=== PATIENT | male | born 1970 | race Two or more races ===

== ENCOUNTER 2024-12-22 07:04 | Inpatient (IN) | payer MEDICAID, SELFPAY ==
[2024-12-22] VITALS (11 sets, daily range): BP systolic 118–173; BP diastolic 77–98; PULSE 78–101; RESP 14–28; TEMP 36.6–37.3; O2SAT 87–100; BMI 28.7
--- NOTE | 2024-12-22 07:30 | EKG_ITS ---
[facility] Test Date: 2024-12-22 Pat Name: JD RIVAS Department: Room: - Gender: Male Dietary Server: VIRI : 1970 Requested By: Ahsan Encinas Order Number: [id number] Reading MD: Ahsan Encinas Measurements Intervals [place] Rate: 93 P: -11 CT: 181 QRS: -16 QRSD: 110 T: 82 QT: 380 QTc: 474 Interpretive Statements SINUS RHYTHM NONSPECIFIC T-WAVE ABNORMALITY Compared to ECG 12/22/2024 07:30:59 T-wave abnormality now present Left ventricular hypertrophy no longer present ST (T wave) deviation no longer present /store/S0/[id number].pdf
--- NOTE | 2024-12-22 07:30 | XR_ITS ---
Examination: AP chest single view Technique one AP portable upright chest single view Date and time: December 22, 2024 0752 hours INDICATIONS: Chest pain today. FINDINGS: Early CHF. Mild enlargement cardiac contour, prominent vascular congestion with perihilar basilar edema Cardiac leads satisfactory position IMPRESSION: Early CHF
--- NOTE | 2024-12-22 07:31 | EKG_ITS ---
[facility] Test Date: 2024-12-22 Pat Name: JD RIVAS Department: Room: - Gender: Male Strategic Communications Manager: : 1970 Requested By: ED Temporary Provider Order Number: [id number] Reading MD: ED Temporary Provider Measurements Intervals [place] Rate: 88 P: -11 [place]: 187 QRS: -21 QRSD: 122 T: 80 QT: 430 QTc: 521 Interpretive Statements SINUS RHYTHM POSSIBLE LEFT ATRIAL ENLARGEMENT [-0.1mV P-WAVE IN V1/V2] BORDERLINE LEFT AXIS DEVIATION [QRS AXIS < -20] LEFT VENTRICULAR HYPERTROPHY AND ST-T CHANGE [VOLTAGE CRITERIA PLUS ST/T ABNORMALITY] No previous ECG available for comparison /store/S0/[id number].pdf
[2024-12-22] MEDS: MORPHINE SULF INJ 4 MG/ML VIAL 2 MG IVP ×2 (08:02→18:27)
[2024-12-22] MEDS: ONDANSETRON INJ 2 MG/ML INJ 2 ML 4 MG IVP (08:03)
[2024-12-22 08:04] LABS: INR 1.0 (0.9-1.3); Partial Thromboplastin Time 29.7 Seconds (22.0-36.0); Prothrombin Time 11.4 Seconds (9.0-12.2)
[2024-12-22 08:06] LABS: B-Type Natriuretic Peptide 360 pg/mL (0-100); Basophils # (Auto) 0.1 Thou/mm3 (0.0-0.2); Basophils % (Auto) 1 % (0-2.5); Eosinophils # (Auto) 0.1 Thou/mm3 (0.0-0.5); Eosinophils % (Auto) 2 % (0-10); Hematocrit 41.5 % (41.0-53.0); Hemoglobin 13.2 g/dL (13.5-16.0); Immature Granulocytes Auto 0.07 Thou/mm3 (0.00-0.00); Lymphocytes # (Auto) 0.9 Thou/mm3 (1.0-4.8); Lymphocytes % (Auto) 11 % (10-50); Mean Corpuscular HGB Conc 31.8 g/dl (31.0-37.0); Mean Corpuscular Hemoglobin 28.0 pg (25.0-35.0); Mean Corpuscular Volume 88 fL (80-100); Monocytes # (Auto) 0.6 Thou/mm3 (0.0-0.8); Monocytes % (Auto) 8 % (0-12); Neutrophils # (Auto) 6.5 Thou/mm3 (1.8-7.7); Neutrophils % (Auto) 78 % (37-80); Nucleated Red Blood Cell # 0.00 Thou/mm3 (0.00-0.00); Nucleated Red Blood Cell % 0 /100 WBC (0); Platelet Count 254 Thou/mm3 (140-440); RDW Standard Deviation 47.6 fL (35.1-43.9); Red Blood Count 4.72 Miln/mm3 (4.50-5.90); White Blood Count 8.3 Thou/mm3 (3.8-10.6)
[2024-12-22 08:15] LABS: Alanine Aminotransferase 18 U/L (10-49); Albumin, Serum 3.8 gm/dL (3.5-5.0); Anion Gap 10 (7-16); Aspartate Amino Transferase 21 U/L (0-34); BUN/Creatinine Ratio 8 Ratio (12-20); Bilirubin,Total 0.8 mg/dL (0.3-1.2); Blood Urea Nitrogen 9 mg/dL (9-23); Calcium 9.0 mg/dL (8.3-10.6); Calcium (Corrected) 9.2 mg/dL (8.5-10.1); Carbon Dioxide 28.0 mMol/L (20.0-31.0); Chloride 104 mMol/L (98-107); Creatinine (Component) 1.2 mg/dL (0.6-1.3); Estimated Creatinine Clearance 80.6 mL/min (>60); Globulin 2.3 gm/dL (2.3-3.5); Glucose 92 mg/dL (74-106); Magnesium 1.8 mg/dL (1.6-2.6); Osmolality,Calculated 281 (275-295); Potassium 3.0 mMol/L (3.4-5.1); Sodium 142 mMol/L (136-145); Total Protein 6.1 gm/dL (5.7-8.2); eGFR > 60 See Note
[2024-12-22 08:16] LABS: Albumin/Globulin Ratio 1.7 (1.2-2.2); Alkaline Phosphatase 108 U/L (46-116)
[2024-12-22 08:29] LABS: Troponin I 0.523 ng/mL (0.0-0.045)
--- NOTE | 2024-12-22 08:29 | PC.NURSE ---
CALL FROM [facility] IN LAB RE: TROP 0.523. INFORMED.
[2024-12-22] MEDS: HEPARIN SOD INJ 5000 UNIT/ML VIAL 4000 UNIT IV (10:27)
--- NOTE | 2024-12-22 10:27 | EDNOTE_ITS ---
ED Chest Pain RME/HPI General Chief Complaint: Chest Pain Stated Complaint: CHEST PAIN Arrival date/time: 12/22/24 07:04 Limitations: no limitations RME / HPI RME / HPI narrative: 53 year old male with history of pacemaker placement 2 years ago at [facility], hypertension?, diabetes? presents to the ED BIBA from home for evaluation of chest pain beginning 2 days ago. Pain described as aching in nature, localized to the left side of chest, without radiation, rating 7/10. Accompanied by feeling short of breath today. No reported modifying or aggravating factors. Patient states he called EMS yesterday for similar chest pain and had an EKG performed at that time. States they advised further evaluation and patient states he would drive himself to the hospital which he did not do. Admits to using meth and last used 2 weeks ago. Related Data Previous Rx's ?Medication ?Instructions ?Recorded Hydrocodone/Acetaminophen * (NORCO 1 tab PO BID PRN PA IN #10 tabs 11/04/15 5/325 *) Allergies Allergy/AdvReac Type Severity Reaction Status Date / Time No Known Allergies Allergy Verified 12/22/24 07:25 Review of Systems Review of Systems Systems Reviewed: All systems reviewed, normal except as documented Past Medical History Social History SMOKING STATUS: Current every day smoker ED Exam General Limitations: Present no limitations General appearance: Present alert and other (appears depressed ) Head Head exam: Present atraumatic, normocephalic and normal inspection Eye Eye exam: Present normal appearance, PERRL and EOMI ENT ENT exam: Present normal exam, normal oropharynx and mucous membranes moist Neck Neck exam: Present normal inspection, full ROM and trachea midline Chest Chest inspection: Present symmetric chest wall rise and other (pacemaker left upper chest ) Respiratory Respiratory exam: Present normal lung sounds bilaterally Cardiovascular Cardiovascular exam: Present regular rate, normal rhythm and normal heart sounds Abdominal Exam Abdominal exam: Present soft and normal bowel sounds Extremities Exam Extremities exam: Present normal inspection and full ROM Back Exam Back exam: Present normal inspection and full ROM Neurological Exam Neurological exam: Present alert, oriented X3 and CN II-XII intact Psychiatric Psychiatric exam: Present other (appears depressed ) Skin Skin exam: Present warm, dry, intact and normal color Course Quality Measures none Orders Category Date Time Status Patient Condition Routine Admission 12/22/24 10:02 Ordered Activity as Tolerated Routine Care 12/22/24 10:02 Ordered COVID-19 Screening Questionnaire NOW Care 12/22/24 09:41 Active Template Inspector STAT Care 12/22/24 07:30 Active Continuous Pulse Oximetry ONCE Care 12/22/24 07:30 Active Decision to Admit X1 Care 12/22/24 09:41 Completed EKG (ED ONLY) *Do not use* NOW Care 12/22/24 07:30 Completed EKG (ED ONLY) *Do not use* NOW Care 12/22/24 07:31 Completed Flu & Pneumonia Vaccine Screen ONCE Care 12/22/24 10:02 Active Insert IV STAT Care 12/22/24 07:30 Active Notify provider NOW Care 12/22/24 09:39 Active Obtain weight daily Care 12/22/24 10:02 Active Consult to Cardiology Stat Cons 12/22/24 09:41 Ordered Diet Cardiac Diet 12/22/24 Lunch Active CA echo doppler complete Routine Exams 12/22/24 10:04 Stop Req EKG (ED Only) Stat Exams 12/22/24 07:30 Ordered EKG (ED Only) Stat Exams 12/22/24 07:31 Draft XR chest 1V portable Stat Exams 12/22/24 07:30 Completed B-Type Natriuretic Peptide Stat Lab 12/22/24 07:39 Completed CBC AM DRAW Lab 12/23/24 05:00 Ordered CBC AM DRAW Lab 12/24/24 05:00 Ordered CBC AM DRAW Lab 12/25/24 05:00 Ordered CBC Stat Lab 12/22/24 07:39 Completed Comprehensive Metabolic Panel AM DRAW Lab 12/23/24 05:00 Ordered Comprehensive Metabolic Panel AM DRAW Lab 12/24/24 05:00 Ordered Comprehensive Metabolic Panel AM DRAW Lab 12/25/24 05:00 Ordered Comprehensive Metabolic Panel Stat Lab 12/22/24 07:39 Completed Magnesium AM DRAW Lab 12/23/24 05:00 Ordered Magnesium Stat Lab 12/22/24 07:39 Completed PT [Prothrombin Time with INR] Stat Lab 12/22/24 07:39 Completed PTT [Partial Thromboplastin Time] Stat Lab 12/22/24 07:39 Completed Partial Thromboplastin Time AM DRAW Lab 12/24/24 05:00 Ordered Phosphorous AM DRAW Lab 12/23/24 05:00 Ordered Prothrombin Time with INR AM DRAW Lab 12/24/24 05:00 Ordered Troponin I Q6H Lab 12/22/24 16:15 Ordered Troponin I Q6H Lab 12/22/24 22:15 Ordered Troponin I Stat Lab 12/22/24 07:39 Completed Troponin I Stat Lab 12/22/24 09:44 Completed UA, C/S IF [Urinalysis, C/S if Indicated] Stat Lab 12/22/24 11:30 Completed Acetaminophen Tab [Tylenol Tab] Med 12/22/24 10:02 Active 650 mg PO Q6H PRN Aspirin Med 12/22/24 07:34 Discontinued 325 mg PO X1 ONE Heparin Inj Med 12/22/24 09:39 Discontinued 4,000 unit IV X1 ONE Heparin/D5w 25K 250 ML Ivpb [Heparin in D5w Ivpb] Med 12/22/24 09:45 Discontinued 25,000 unit in 250 ml IV 12 units/kg/hr Morphine* Inj Med 12/22/24 07:34 Discontinued 2 mg IVP X1 ONE Ondansetron Inj [Zofran Inj] Med 12/22/24 07:34 Discontinued 4 mg IVP X1 ONE Senna [Senokot] Med 12/22/24 10:02 Active 1 tab PO BID PRN Code Status Routine Oth 12/22/24 10:02 Ordered Vital Signs Vital signs: Vital Signs Temperature 99.0 F 12/22/24 07:15 Pulse Rate 91 12/22/24 07:15 Respiratory Rate 18 12/22/24 07:15 Blood Pressure 173/77 H 12/22/24 07:15 Pulse Oximetry (%) 98 12/22/24 07:15 Oxygen Delivery Method Nasal Cannula 12/22/24 07:15 Oxygen Flow Rate 2 12/22/24 07:15 Pulse ox is 98% on 2L which is adequate. Chest Pain MDM Narrative MDM Narrative:: Saira Kumar am scribing for and in the presence of Dr. Mejia. Patient data External records reviewed:: EMS form Clinical information provided by:: patient and EMS Social determinants that could affect healthcare access:: substance use (meth, last used 2 week ago ) Patient has the following chronic illnesses:: pacemaker placement 2 years ago at [facility], hypertension?, diabetes? How is presenting disease/condition affected by chronic disease/condition?: exacerbated by Evaluation data The following diagnostics were reviewed and interpreted by me:: lab results, radiology exam(s) and EKG tracing(s) (12/22/2024 @ 07:30 AM. NSR, rate 88, left atrial enlargement, left axis deviation, nonspecific ST-T wave changes. ) Lab and/or radiology exams considered but not ordered:: None Interpretation Summary: Ordering Physician: Ahsan Mejia MD Date of Service: 12/22/24 Procedure(s): XR chest 1V portable Accession Number(s): [id number] cc: Ahsan Mejia MD; Ravi Peña MD; NO PRIMARY/FAMILY,PHYSICIAN~ Examination: AP chest single view Technique one AP portable upright chest single view Date and time: December 22, 2024 0752 hours INDICATIONS: Chest pain today. FINDINGS: Early CHF. Mild enlargement cardiac contour, prominent vascular congestion with perihilar basilar edema Cardiac leads satisfactory position IMPRESSION: Early CHF Dictated By: Ravi Peña MD Signed By: <Electronically signed by Ravi Peña MD in OV> 12/22/24 1008 Medications / Prescriptions Medications or Prescriptions considered but not ordered:: None Medication administrations:: Medication Administration History Acetaminophen (Acetaminophen 325 Mg Tablet) 650 mg PO Q6H PRN PRN Reason: PAIN SCALE 1-3 (mild Stop: 01/21/25 10:01 Atorvastatin Calcium (Atorvastatin Calcium 20 Mg Tablet) 80 mg PO HS DEBRA Stop: 01/21/25 20:59 Furosemide (Furosemide Inj 10 Mg/Ml 4ml Vial) 40 mg IVP QDAY DEBRA Stop: 01/22/25 08:59 Magnesium Sulfate (Magnesium Sulfate Ivpb) 4 gm in 50 mls @ 12.5 mls/hr IV X1 ONE Stop: 12/22/24 14:20 Last Admin: 12/22/24 11:12 Dose: 12.5 mls/hr Documented By: CHE Sennosides (Senna Tablet) 1 tab PO BID PRN; Protocol PRN Reason: CONSTIPATION Stop: 01/21/25 10:01 Valsartan (Valsartan 40 Mg Tablet) 80 mg PO QDAY DEBRA Stop: 01/21/25 10:29 Last Admin: 12/22/24 11:10 Dose: 80 mg Documented By: LP Discontinued Medications Albuterol (Albuterol Rt 2.5 Mg/3 Ml Nebu) 2.5 mg INH X1 ONE Stop: 12/22/24 13:27 Aspirin (Aspirin 325 Mg Tablet) 325 mg PO X1 ONE Stop: 12/22/24 07:35 Last Admin: 12/22/24 08:02 Dose: 325 mg Documented By: CHE Heparin Sodium (Porcine) (Heparin Sod Inj 5000 Unit/Ml Vial) 4,000 unit IV X1 ONE; Protocol Stop: 12/22/24 09:40 Last Admin: 12/22/24 10:27 Dose: 4,000 unit Documented By: CHE Co-signed By: SYD Heparin Sodium/Dextrose (Heparin In D5w Ivpb) 25,000 unit in 250 mls @ 10.886 mls/hr IV .[id number] DEBRA; Protocol Stop: 01/05/25 09:44 Last Admin: 12/22/24 10:28 Dose: 12 units/kg/hr, 10.886 mls/hr Documented By: CHE Co-signed By: SYD Morphine Sulfate (Morphine Sulf Inj 4 Mg/Ml Vial) 2 mg IVP X1 ONE Stop: 12/22/24 07:35 Last Admin: 12/22/24 08:02 Dose: 2 mg Documented By: CHE Ondansetron HCl (Ondansetron Inj 2 Mg/Ml Inj 2 Ml) 4 mg IVP X1 ONE; Protocol Stop: 12/22/24 07:35 Last Admin: 12/22/24 08:03 Dose: 4 mg Documented By: CHE Potassium Chloride (Potassium Chloride 10% 20 Meq/15 Ml Udc) 40 meq PO X1 ONE Stop: 12/22/24 10:23 Last Admin: 12/22/24 11:10 Dose: 40 meq Documented By: CHE Potassium Chloride (Potassium Chloride 20 Meq Tabcr) 40 meq PO X1 ONE Stop: 12/22/24 13:01 Last Admin: 12/22/24 13:09 Dose: 40 meq Documented By: GARRY Valsartan (Valsartan 80 Mg Tablet) 80 mg PO QDAY [facility] Stop: 01/21/25 10:29 Last Admin: 12/22/24 13:04 Dose: Not Given Documented By: GARRY Non-Admin Reason: Cancelled by Provider See above Consultations Consultation(s) initiated? (list below): Yes Consultation #1 (Physician, Specialty, Details): I spoke with orchestra conductor Dr. Goldstein. Discussed patients PMHx, HPI, ED course, exam findings, labs, and radiology results. Time: 09:36 Consultation #2 (Physician, Specialty, Details): I spoke with hospitalist team B regarding admission. Diagnosis Chest Pain Differential Diagnosis: stable angina, unstable angina pectoris, atypical chest pain, st elevation myocardial infarction, costochondritis and chest pain Most likely diagnosis given after review of the tests above:: Chest pain Elevated troponin Methamphetamine abuse Admission Indicated Admission indicated?: indicated Admission Request Was there a request for admission?: Yes Admission Attestation Admission request attestation: Discussed case with [] from Hospitalist service regarding admission. Discussed patients ED course, exam findings, labs, and radiology results. The Hospitalist [agrees,declines] to accept the patient for admission. Disposition Plan Disposition Plan: Admit Discharge Plan Plan Patient Disposition: Admit Acute Care w/in Hospital Problem List Clinical Impression: Chest pain, Elevated troponin, Methamphetamine use
[2024-12-22] MEDS: Heparin/D5w 25K 250 ML Ivpb 25,000 UNIT/250 ML BAG 10.886 UNIT IV (10:28)
[2024-12-22 10:32] LABS: Troponin I 0.523 ng/mL (0.0-0.045)
--- NOTE | 2024-12-22 11:08 | PC.NURSE ---
SPOKE W/ GAGAN IN PHARMACY THAT THERE IS NO MAGNESIUM IV IN THE [facility]. HE WILL BRING MORE TO [facility].
[2024-12-22] MEDS: POTASSIUM CHLORIDE 10% 20 MEQ/15 ML UDC 40 MEQ PO (11:10)
[2024-12-22] MEDS: VALSARTAN 40 MG TABLET 80 MG PO (11:10)
[2024-12-22] MEDS: Magnesium Sulfate 4 GM Ivpb 4 GM/50 ML BAG IV (11:12)
[2024-12-22 11:43] LABS: Collection Type, Urine Clean Catch
[2024-12-22 11:49] LABS: Bilirubin,Urine Negative (Negative); Blood,Urine Negative (Negative); Clarity,Urine Clear (Clear/Hazy); Color,Urine Yellow (Lt Yel-Yel); Culture Indicated,Urine Not Indicated; Glucose, Urine Negative (Negative); Ketones,Urine Negative (Negative); Leukocyte Esterase,Urine Negative (Negative); Nitrite,Urine Negative (Negative); PH,Urine 6.0 (5.0-7.0); Protein,Urine 1+ (Neg - Trace); RBC,Urine 2 /hpf (0-3); Specific Gravity,Urine 1.028 (1.001-1.035); Squamous Epithelial Cell,Urine < 1 /hpf (0-5); Urobilinogen,Urine Negative mg/dL (0.0-1.0); WBC,Urine 1 /hpf (0-5)
--- NOTE | 2024-12-22 13:31 | PC.NURSE ---
REPORT CALLED TO PATRICIO AGUSTIN ON TELE. PT WILL BE TRANSFERRED TO ROOM #[id number].
[2024-12-22] MEDS: ALBUTEROL RT 2.5 MG/3 ML NEBU INH (13:51)
--- NOTE | 2024-12-22 13:56 | ESHP_ITS ---
<Statement entered by Lyndon Pino MD - 12/22/24 15:11> 53-year-old male with past medical history of HFrEF (EF of 25% about 4 months ago), AICD placement, meth use disorder, medically noncompliant stating he has not seen a PCP or area representative in about 1-2 years presenting to the ED with episode of left-sided chest pain which started about 3 days ago. Patient states that he has not taken any of his 15 medications as these medications usually cause him to end up in the hospital. Patient states that the chest pain has progressively worsened throughout these past 3 days and is associated with shortness of breath but no palpitations or trauma to the area. Patient also admitted to using methamphetamine about 2 weeks ago. On examination, patient does not seem volume overloaded with no JVD, crackles on auscultation of the lungs or lower extremity edema. Additionally chest pain is reproducible with palpation of the chest wall. Cardiology was consulted from the ED due to the patient having elevated troponin and EKG changes which increase suspicion for NSTEMI. Patient was initially started on heparin drip; however, upon cardiology reassessing the patient decision was made to discontinue heparin drip and echo as he has had a recent study. Will monitor patient's troponin and chest pain and restart patient on GDMT and antiplatelet medication. Expect discharge within the next 24 hours once the patient is clinically stable. Will highly recommend the patient to follow-up with PCP and restart taking his medications and his health seriously. I have personally seen and examined the patient. I agree with the resident's assessment and plan as documented below. Lyndon Pino DO PGY-2 Internal Medicine - GME Documentation for date of: 12/22/24 HPI History of Present Illness Chief complaint: Chest pain and SOB History of present illness: Mr. Mina is a 53-year-old male with a past medical history of type 2 diabetes mellitus, HTN, and HFrEF s/p ICD placement who presented at [facility] ED on 12/22 for chest pain and shortness of breath. Patient was admitted under observation for ACS rule out. According to the patient, the pain and shortness of breath started about 3 days ago. The patient describes it as a stabbing like needle pain in the center of his chest that does not radiate and gets worse on palpation of the chest. Nothing seems to help with the pain and he rates it as a 7-8 out of 10 on the pain scale. Patient stated that he has had ICD placement in the past for heart failure and used to be on multiple medications, but has not been taking any medications for about a year. Looking at his pharmacy refills, the patient took atorvastatin 80 mg daily, furosemide 40 mg daily, metoprolol succinate 25 mg daily, spironolactone 25 mg (timing unclear), and valsartan 80 mg daily. The person who prescribed these medications is Dr. Breen, an firewall administrator in [place], [place], who is affiliated with [facility]. The patient states that he does not have a PCP and does not follow with any area representative. Patient endorses chills and coughs. Patient denies fevers, headaches, abdominal pain, dysuria, and pyuria. ED course: Patient presented to ED with vitals significant for blood pressure of 173/77. EMS brought patient and on 2 L nasal cannula, saturating 99%, gave patient aspirin 162 mg and nitroglycerin, nitroglycerin provided chest pain relief Initial labs were significant for hemoglobin 13.2, potassium 3.0, BNP 360, troponin 0.523, repeat troponin 0.523. Chest x-ray showed mild enlargement of the cardiac contour with prominent vascular congestion and perihilar basilar edema, suggestive of early CHF. Urine tox ordered, pending. Patient was given morphine 2 mg, aspirin 325 mg, and started on heparin drip. 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 Alcohol Intake:?Patient denies active use, did state that he has been sober for 24 years, does not remember how much he drank in the past Tobacco/Vape Use:?Patient states that he smokes about 1 pack of 10 cigarettes over 3 days for several years Other Drug Use:?Crystal methamphetamine, last use was 1 week ago Review of Systems Review of Systems Systems Reviewed: All systems reviewed, normal except as documented Exam Vital Signs Temp Pulse Resp BP Pulse Ox O2 Del Method O2 Flow Rate 99.0 F 83 16 125/83 96 Nasal Cannula 2 12/22/24 13:23 12/22/24 13:51 12/22/24 13:23 12/22/24 13:23 12/22/24 13:23 12/22/24 13:23 12/22/24 13:23 Narrative Exam Physical Exam: General: Alert, no acute distress. Skin: Warm, dry, intact. Head: Normocephalic, atraumatic. Eye: Normal conjunctiva, PERRL. Cardiovascular: Regular rate and rhythm, no murmur, +S1/S2. Tenderness to palpation of mid sternum. Respiratory: Lungs are clear to auscultation, respirations unlabored, no crackles, no wheezing. Gastrointestinal: Soft, nontender, non-distended. No guarding or rebound tenderness. Extremities: No edema, no cyanosis, no clubbing. 2+ radial pulse bilaterally, 2+ pedal pulse bilaterally. Neuro: No focal deficits observed. Conversant, moving all extremities. No overt cerebellar signs/incoordination. Psychiatric: Cooperative, appropriate affect. Results: Labs 12/23/24 05:43 12/23/24 05:43 Labs: Short CBC 12/22/24 Range/Units 07:39 WBC 8.3 (3.8-10.6) Thou/mm3 Hgb 13.2 L (13.5-16.0) g/dL Hct 41.5 (41.0-53.0) % Plt Count 254 (140-440) Thou/mm3 BMP 12/22/24 07:39 Sodium 142 Potassium 3.0 L Chloride 104 Carbon Dioxide 28.0 BUN 9 Creatinine 1.2 Glucose 92 Calcium 9.0 Cardiac Enzymes 12/22/24 12/22/24 Range/Units 07:39 09:44 Troponin I 0.523 H* 0.523 H* (0.0-0.045) ng/mL Liver Function 12/22/24 Range/Units 07:39 Total Bilirubin 0.8 (0.3-1.2) mg/dL AST 21 (0-34) U/L ALT 18 (10-49) U/L Alkaline Phosphatase 108 (46-116) U/L Albumin 3.8 (3.5-5.0) gm/dL Urine 12/22/24 Range/Units 11:30 Urine Color Yellow (Lt Yel-Yel) Urine Clarity Clear (Clear/Hazy) Urine pH 6.0 (5.0-7.0) Ur Specific [place] 1.028 (1.001-1.035) Urine Protein 1+ A (Neg - Trace) Urine Glucose (UA) Negative (Negative) Quality Measures Quality Measures VTE prophylaxis Medications Home Medications and Allergies Allergies Allergy/AdvReac Type Severity Reaction Status Date / Time No Known Allergies Allergy Verified 12/22/24 07:25 Visit Medications Acetaminophen (Acetaminophen 325 Mg Tablet) 650 mg PO Q6H PRN PRN Reason: PAIN SCALE 1-3 (mild Stop: 01/21/25 10:01 Atorvastatin Calcium (Atorvastatin Calcium 20 Mg Tablet) 80 mg PO HS DEBRA Stop: 01/21/25 20:59 Furosemide (Furosemide Inj 10 Mg/Ml 4ml Vial) 40 mg IVP QDAY DEBRA Stop: 01/22/25 08:59 Magnesium Sulfate (Magnesium Sulfate Ivpb) 4 gm in 50 mls @ 12.5 mls/hr IV X1 ONE Stop: 12/22/24 14:20 Last Admin: 12/22/24 11:12 Dose: 12.5 mls/hr Sennosides (Senna Tablet) 1 tab PO BID PRN; Protocol PRN Reason: CONSTIPATION Stop: 01/21/25 10:01 Valsartan (Valsartan 40 Mg Tablet) 80 mg PO QDAY DEBRA Stop: 01/21/25 10:29 Last Admin: 12/22/24 11:10 Dose: 80 mg Discontinued Medications Albuterol (Albuterol Rt 2.5 Mg/3 Ml Nebu) 2.5 mg INH X1 ONE Stop: 12/22/24 13:27 Last Admin: 12/22/24 13:51 Dose: 2.5 mg Aspirin (Aspirin 325 Mg Tablet) 325 mg PO X1 ONE Stop: 12/22/24 07:35 Last Admin: 12/22/24 08:02 Dose: 325 mg Heparin Sodium (Porcine) (Heparin Sod Inj 5000 Unit/Ml Vial) 4,000 unit IV X1 ONE; Protocol Stop: 12/22/24 09:40 Last Admin: 12/22/24 10:27 Dose: 4,000 unit Heparin Sodium/Dextrose (Heparin In D5w Ivpb) 25,000 unit in 250 mls @ 10.886 mls/hr IV .[id number] DEBRA; Protocol Stop: 01/05/25 09:44 Last Admin: 12/22/24 10:28 Dose: 12 units/kg/hr, 10.886 mls/hr Morphine Sulfate (Morphine Sulf Inj 4 Mg/Ml Vial) 2 mg IVP X1 ONE Stop: 12/22/24 07:35 Last Admin: 12/22/24 08:02 Dose: 2 mg Ondansetron HCl (Ondansetron Inj 2 Mg/Ml Inj 2 Ml) 4 mg IVP X1 ONE; Protocol Stop: 12/22/24 07:35 Last Admin: 12/22/24 08:03 Dose: 4 mg Potassium Chloride (Potassium Chloride 10% 20 Meq/15 Ml Udc) 40 meq PO X1 ONE Stop: 12/22/24 10:23 Last Admin: 12/22/24 11:10 Dose: 40 meq Potassium Chloride (Potassium Chloride 20 Meq Tabcr) 40 meq PO X1 ONE Stop: 12/22/24 13:01 Last Admin: 12/22/24 13:09 Dose: 40 meq Valsartan (Valsartan 80 Mg Tablet) 80 mg PO QDAY DEBRA Stop: 01/21/25 10:29 Last Admin: 12/22/24 13:04 Dose: Not Given Assessment & Plan Plan Mr. Mina is a 53-year-old male with a past medical history of type 2 diabetes mellitus, HTN, and HFrEF s/p ICD placement who presented at [facility] ED on 12/22 for chest pain and shortness of breath. Patient was admitted under for ACS workup. #NSTEMI, type I vs II #Chest pain, atypical #ACS workup Patient complaints of chest pain that started about 3 days ago and is described as needlelike stabbing pain on admission that is in the center of his chest and does not radiate. The pain is reproducible and worsened on palpation of the patient sternal area. Per EMS, the patient's chest pain did improve with administration of nitroglycerin. Initial EKG obtained in ED showed no ST elevation. Patient did have elevated troponin of 0.523 in ED at 0739, which was unchanged at 0944. ASCVD score pending - Resumed atorvastatin 80 mg nightly - Resumed metoprolol succinate 25 mg daily - Trending troponins, pending - Lipid panel ordered, pending - Cardiology consulted, appreciate recommendations #HFrEF, EF 25%, s/p ICD While patient does not endorse a history of heart failure correctly, he does mention having a pacemaker. Patient was prescribed GDMT consisting of furosemide, metoprolol, spironolactone, and valsartan. On admission, the patient's BNP was 360 and chest x-ray on 12/22 suggest early CHF. Echocardiogram done in outside facility in September or October showed EF of 25%. - Resumed valsartan 80 mg daily - Resumed furosemide 40 mg daily - Keep potassium >4 and magnessium >2 - Cardiology consulted, appreciate recommendations #Non-insulin dependent type 2 diabetes Patient endorses a history of diabetes. Patient does not have a physician who manages his diabetes. Patient is not on any insulin at home. - Sliding scale insulin step 1 - Hemoglobin A1c ordered, pending - Consistent carbohydrate diet #Primary hypertension Patient has a history of hypertension. Patient does not take any home medications, even though he has been prescribed medications for this in the past. - Resumed valsartan 80 mg daily #Hypokalemia Patient noted to have potassium of 3.0 in ED. Will need potassium >4 given HFrEF s/p ICD to avoid potentially arrhythmias. - Will continue to monitor, replete as necessary #Methamphetamine abuse Patient does endorse a history of methamphetamine use. Patient states that he takes crystal methamphetamine and his last use was about a week ago. - Urine toxicology ordered, pending #Tobacco use Patient does have a history of active tobacco use. Patient endorses smoking about 3 to 4 cigarettes a day for many years. This may be contributing to the patient's presentation of chest pain in addition to methamphetamine use. - Nicotine patch ordered - Counselled on tobacco cessation DVT Prophylaxis: Heparin GI Prophylaxis: N/A Bowel: Senna as needed Diet: Cardiac Horn: N/A Lines: Peripheral IV Antibiotics: N/A Code Status: FULL Reason for Hospitalization: ACS rule out Other Barriers to Discharge: Troponins Patient plan of care was discussed with the senior resident Dr. Pino (PGY- 2) and attending physician Dr[address] Demetrius Snow, PGY1 Attending Provider Attestation/Addendum José, Candy Romo DO, attest that I was physically present for the hurst portions of the service and evaluated the patient with the resident and I reviewed and discussed the case with the resident and agree with the resident's findings and plans of care as documented above Patient is a 53-year-old male with past medical history of cardiomyopathy with ejection fraction of 25% and AICD placement, meth use and medication noncompliance who presented to the ED due to 3 days of stabbing pain in his left chest. Pain is reproducible on palpation. He states that he last used methamphetamine about 2 weeks ago. Patient appears short of breath on exam with breaks in sentences while speaking. Troponin on initial presentation to the ED was 0.523. EKG does not show any ST or T wave changes. Chest x-ray shows mild CHF. Cardiology was consulted from ED and recommended further workup of NSTEMI. No peripheral edema noted on exam. Patient was started heparin drip and received aspirin loading dose. Patient has not been following up with any area representative since and does not appear to be taking his medications as instructed. Patient states that the pain is intermittent and associated with his shortness of breath. Will admit patient to telemetry for further workup medical management NSTEMI. Will restart home medications for goal-directed medical therapy for heart failure and follow troponins. Continue with heparin drip at this time and follow cardiology recommendations.
--- NOTE | 2024-12-22 14:20 | PC.NURSE ---
PT TRANSFERRED TO TELE #[id number] VIA GURNEY ACCOMPANIED BY RN. CARE ENDORSED TO PEDRO CURRY AND 2 CNAs.
[2024-12-22 16:50] LABS: Amphetamine/Methamp Scrn,U Positive (Negative); Barbiturate Screen,Urine Negative (Negative); Benzodiazepines Screen,Urine Negative (Negative); Benzoylecgonine Screen, Ur Negative (Negative); Fentanyl Screen,Urine Negative (Negative); Opiate Screen,Urine Positive (Negative); THC Screen,Urine Negative (Negative)
[2024-12-22 17:28] LABS: Troponin I 0.476 ng/mL (0.0-0.045)
[2024-12-22] MEDS: NICOTINE PATCH 7 MG/24 HR PATCH.TD24 TOP (17:48)
[2024-12-22] MEDS: METOPROLOL SUCCINATE XL 25 MG TABCR PO (17:48)
[2024-12-22 17:53] LABS: Partial Thromboplastin Time 33.5 Seconds (22.0-36.0)
--- NOTE | 2024-12-22 18:15 | PD.RESEVENT ---
Documentation for date of: 12/22/24 Event Note Event Note: Rapid Response Room:?262 Time:?1810 Reason for Call:?Chest pain and low O2 saturation Patient presentation: Patient was found in room sitting up, did appear in acute distress. Patient was taking very small shallow breaths. Patient was complaining of chest pain and difficulty breathing. Patient described chest pain as stabbing sensation similar to the pain he felt in the ED on admission. Pain is reproducible on palpation of sternum and worsened upon palpation of sternum. Patient vitals: BP 129/98, HR 95, 87% O2 on 4L NC. Blood glucose 102. Events: Obtain stat EKG, which showed no significant change from previous EKG. Gave patient 2 mg morphine IV push. Replaced pulse ox on earlobe with pulse ox on finger, which showed O2 saturation of 99%. Discussed case with cardiology, Dr. Goldstein, who was not concerned for ACS at this time. Discussed with medicine team that chest pain symptoms are likely related to patient's long history of methamphetamine use. Assessment:? Atypical chest pain, unlikely related to ACS given presentation, possibly related to methamphetamine withdrawal and initial morphine given in ED wearing off. New orders: EKG CXR BMP Lactic acid EKG ABG 2 mg morphine Patient was discussed with the attending, Dr. Romo. Jim Snow, PGY-1
--- NOTE | 2024-12-22 18:15 | XR_ITS ---
Examination: AP chest single view Technique: AP portable upright chest single view Date and time: December 22, 2024, 1839 hrs., Comparison 12/22/2024 0752 hrs. Indications: Chest pain today. Findings: Again noted mild CHF. Mild to moderate enlargement cardiac contour. Prominent vascular congestion with perihilar edema. Transvenous dual-chamber bipolar cardiac leads satisfactory position. Prominent osteopenia. Impression: Mild CHF
[2024-12-22 18:40] LABS: Base Excess 3 (-3-3); HCO3 29 mEq/L (20-26); Inspired Oxygen, FIO2 21 %; O2 Saturation 57 % (91-98); PCO2 52 mmHg (32.0-48.0); pH, Arterial 7.36 (7.35-7.45)
[2024-12-22 18:42] LABS: Inspired O2, VO2 Liters 5 L/min
[2024-12-22 18:43] LABS: Allen Test Not Performed
[2024-12-22 18:44] LABS: PO2 33 mmHg (83-108)
[2024-12-22 19:48] LABS: B-Type Natriuretic Peptide 343 pg/mL (0-100)
[2024-12-22 20:00] LABS: Troponin I 0.488 ng/mL (0.0-0.045)
--- NOTE | 2024-12-22 20:05 | ESCONSULT_ITS ---
<Statement entered by Amy Goldstein MD - 12/24/24 16:37> I personally examined evaluated this patient and reviewed all the records from [facility] patient was frequently hospitalized at another hospital for several years dating back to 2019 most recently June 2023 he was hospitalized with similar symptoms troponin elevation 0.5 with history of nonischemic cardiomyopathy coronary angiogram was completely normal in 2022 he also had ICD implantation because of low ejection fraction. Last echo showed ejection fraction 20% NYHA functional class IV he was discharged home on guideline directed medical management [place] [facility] but patient is noncompliant he continues to methamphetamine abuse has not been taking medical management as far as GDMT for heart failure is concerned patient is difficult to communicate as well did come with chest pain mild troponin elevation which is chronic patient had a complete workup including angiogram and echo recently no need for any extensive workup recommend guideline directed medical management with diuretics as tolerated necessary beta-blockers RUBINA ARB and spironolactone as tolerated patient should be discharged in a day or 2 if there is no further deterioration to have follow-up by his regular dbas and medical clinic. Evaluated patient with resident physician Dr. Kelly PGY2 agree with the treatment plan recommendation as documented. No need to do any further investigation since he had a complete workup only recently at the hospital in [place]. 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 Will continue to monitor the patient closely if there is any significant worsening of symptoms I will be glad to see him again. HPI Data of Consult Consult date: 12/22/24 Requesting Physician: Candy Romo DO Admitting Provider: Candy Romo DO Attending Provider: Amy Goldstein MD Primary Care Provider: Physician No Primary/Family Consult Narrative Reason for consult: Chest pain History of present illness: 53-year-old male active smoker and meth user with past medical history of hypertension, HFrEF [25%] status post ICD who presented to the ED due to chest pain. Patient describes the pain as left-sided sharp-like sensation with numbness in bilateral upper extremities which started around 3 days ago. Patient also endorsed some shortness of breath with his chest pain. He also has some pain and tenderness around the site of the ICD. Patient also states he has not taken his GDMT for over 1 year, unknown reason why. In the ED patient was loaded with aspirin and started on heparin drip due to elevated troponins around 0.5. Cardiology was consulted for evaluation of chest pain. ED course: Vitals on arrival BP 173/77, HR 91, RR 18, O2 sat 98% on 2 L nasal cannula. Lab significant for elevated troponin 0.5. EKG showed no acute ST changes. PMHx: As above SX Hx: ICD placement MIOX (12/24/2022) Social Hx: Active cigarette user, uses methamphetamine, denies alcohol use FH X: Unknown Cardiology consulted for evaluation of chest pain in setting of elevated troponins cc:: cc: Candy Romo DO Review of Systems Review of Systems Systems Reviewed: All systems reviewed, normal except as documented Exam Vital Signs Temp Pulse Resp BP Pulse Ox O2 Del Method O2 Flow Rate 98.2 F 91 19 127/90 H 99 Nasal Cannula 2 12/22/24 16:00 12/22/24 17:48 12/22/24 16:00 12/22/24 17:48 12/22/24 16:00 12/22/24 16:00 12/22/24 19:11 Narrative Exam GENERAL: NAD, AAOx3 HEENT: Moist mucosa. Eyes open, symmetrical, & clear CARDIO: Heart RRR, no obvious murmurs PULM: No noted coughing/dyspnea CTA B/L, no R/W/R GI: Abdomen soft, nondistended, no pain on palpation. BSx4 SKIN/MSK/EXT: No wounds/rashes/edema/amputations, no pain on palpation. Pedal pulses present B/L NEURO: AAOx3, no focal neuro deficits, able to move all 4 extremities Results Labs 12/22/24 07:39 12/22/24 07:39 Labs: Short CBC 12/22/24 Range/Units 07:39 WBC 8.3 (3.8-10.6) Thou/mm3 Hgb 13.2 L (13.5-16.0) g/dL Hct 41.5 (41.0-53.0) % Plt Count 254 (140-440) Thou/mm3 BMP 12/22/24 07:39 Sodium 142 Potassium 3.0 L Chloride 104 Carbon Dioxide 28.0 BUN 9 Creatinine 1.2 Glucose 92 Calcium 9.0 Cardiac Enzymes 12/22/24 12/22/24 12/22/24 Range/Units 07:39 09:44 16:38 Troponin I 0.523 H* 0.523 H* 0.476 H* (0.0-0.045) ng/mL 12/22/24 Range/Units 19:04 Troponin I 0.488 H* (0.0-0.045) ng/mL Liver Function 12/22/24 Range/Units 07:39 Total Bilirubin 0.8 (0.3-1.2) mg/dL AST 21 (0-34) U/L ALT 18 (10-49) U/L Alkaline Phosphatase 108 (46-116) U/L Albumin 3.8 (3.5-5.0) gm/dL Urine 12/22/24 Range/Units 11:30 Urine Color Yellow (Lt Yel-Yel) Urine Clarity Clear (Clear/Hazy) Urine pH 6.0 (5.0-7.0) Ur Specific [place] 1.028 (1.001-1.035) Urine Protein 1+ A (Neg - Trace) Urine Glucose (UA) Negative (Negative) ABG Interpretation ABG results: 12/22/24 18:30 ABG pH 7.36 ABG pCO2 52 H ABG pO2 33 L* ABG HCO3 29 H ABG O2 Saturation 57 L ABG Base Excess 3 Quality Measures Quality Measures VTE prophylaxis Medications Home Medications and Allergies Allergies Allergy/AdvReac Type Severity Reaction Status Date / Time No Known Allergies Allergy Verified 12/22/24 07:25 Visit Medications Acetaminophen (Acetaminophen 325 Mg Tablet) 650 mg PO Q6H PRN PRN Reason: PAIN SCALE 1-3 (mild Stop: 01/21/25 10:01 Aspirin (Aspirin Ec 81 Mg Tabec) 81 mg PO QDAY DEBRA Stop: 01/22/25 08:59 Atorvastatin Calcium (Atorvastatin Calcium 20 Mg Tablet) 80 mg PO HS DEBRA Stop: 01/21/25 20:59 Dextrose (Dextrose 50%-Water Inj 50 Ml Syringe) 25 ml IV Q15MIN PRN PRN Reason: BG 50-70 responsive npo pt Stop: 01/21/25 13:57 Dextrose (Dextrose 50%-Water Inj 50 Ml Syringe) 50 ml IV Q15MIN PRN PRN Reason: BG <50 OR BG <70 & pt unresponsive Stop: 01/21/25 13:57 Furosemide (Furosemide Inj 10 Mg/Ml 4ml Vial) 40 mg IVP QDAY [facility] Stop: 01/22/25 08:59 Glucagon (Glucagon Inj 1 Mg Vial) 1 mg IM Q15MIN PRN PRN Reason: BG <70, and no IV access Heparin Sodium (Porcine) (Heparin Sod Inj 5000 Unit/Ml Vial) 5,000 unit SC Q12HR [facility] Stop: 01/05/25 21:59 Insulin Human Lispro (Insulin Lispro (Admelog) 1 Unit/0.01 Ml Unit) 0 unit SC AC [facility]; Protocol Stop: 01/21/25 16:59 Last Admin: 12/22/24 17:51 Dose: Not Given Metoprolol Succinate (Metoprolol Succinate Xl 25 Mg Tabcr) 25 mg PO QDAY [facility] Stop: 01/21/25 16:29 Last Admin: 12/22/24 17:48 Dose: 25 mg Sennosides (Senna Tablet) 1 tab PO BID PRN; Protocol PRN Reason: CONSTIPATION Stop: 01/21/25 10:01 Valsartan (Valsartan 40 Mg Tablet) 80 mg PO QDAY [facility] Stop: 01/21/25 10:29 Last Admin: 12/22/24 11:10 Dose: 80 mg Discontinued Medications Albuterol (Albuterol Rt 2.5 Mg/3 Ml Nebu) 2.5 mg INH X1 ONE Stop: 12/22/24 13:27 Last Admin: 12/22/24 13:51 Dose: 2.5 mg Aspirin (Aspirin 325 Mg Tablet) 325 mg PO X1 ONE Stop: 12/22/24 07:35 Last Admin: 12/22/24 08:02 Dose: 325 mg Heparin Sodium (Porcine) (Heparin Sod Inj 5000 Unit/Ml Vial) 4,000 unit IV X1 ONE; Protocol Stop: 12/22/24 09:40 Last Admin: 12/22/24 10:27 Dose: 4,000 unit Heparin Sodium/Dextrose (Heparin In D5w Ivpb) 25,000 unit in 250 mls @ 10.886 mls/hr IV .[id number] [facility]; Protocol Stop: 01/05/25 09:44 Last Admin: 12/22/24 10:28 Dose: 12 units/kg/hr, 10.886 mls/hr Magnesium Sulfate (Magnesium Sulfate Ivpb) 4 gm in 50 mls @ 12.5 mls/hr IV X1 ONE Stop: 12/22/24 14:20 Last Admin: 12/22/24 11:12 Dose: 12.5 mls/hr Morphine Sulfate (Morphine Sulf Inj 4 Mg/Ml Vial) 2 mg IVP X1 ONE Stop: 12/22/24 07:35 Last Admin: 12/22/24 08:02 Dose: 2 mg Morphine Sulfate (Morphine Sulf Inj 4 Mg/Ml Vial) 2 mg IVP X1 ONE Stop: 12/22/24 18:23 Last Admin: 12/22/24 18:27 Dose: 2 mg Nicotine (Nicotine Patch 7 Mg/24 Hr Patch.Td24) 7 mg TOP X1 ONE Stop: 12/22/24 15:35 Last Admin: 12/22/24 17:48 Dose: 7 mg Ondansetron HCl (Ondansetron Inj 2 Mg/Ml Inj 2 Ml) 4 mg IVP X1 ONE; Protocol Stop: 12/22/24 07:35 Last Admin: 12/22/24 08:03 Dose: 4 mg Potassium Chloride (Potassium Chloride 10% 20 Meq/15 Ml Udc) 40 meq PO X1 ONE Stop: 12/22/24 10:23 Last Admin: 12/22/24 11:10 Dose: 40 meq Potassium Chloride (Potassium Chloride 20 Meq Tabcr) 40 meq PO X1 ONE Stop: 12/22/24 13:01 Last Admin: 12/22/24 13:09 Dose: 40 meq Valsartan (Valsartan 80 Mg Tablet) 80 mg PO QDAY DEBRA Stop: 01/21/25 10:29 Last Admin: 12/22/24 13:04 Dose: Not Given Assessment & Plan Plan 53-year-old male active smoker and meth user with past medical history of hypertension, HFrEF [25%] status post ICD who presented to the ED due to chest pain. Cardiology consulted for evaluation of chest pain with elevated troponins #Toxic Cardiomyopathy #Methamphetamine use #[employer] use #HFrEF 25% s/p ICD placement #Hypertension Patient is a regular methamphetamine abuser in the morning he stated he last used meth around 2 weeks ago, later in the afternoon he stated about a week ago however UTOX here was positive for methamphetamine, patient's history seems dishonest as answers are inconsistent. Furthermore in evaluating patient's previous echocardiogram from [facility] shows EF of around 20 to 25% which was done of June 2024 Patient also had angiogram with normal coronary arteries in 2023. Patient also noncompliant with his medications he has not taken any of his GDMT for over a year. Patient currently is not in acute CHF exacerbation. EKG showed no acute ST changes Troponins elevated at 0.5 already downtrending to 0.4 ? Discontinue heparin drip ? No need for cardiac cath at this present point in time. ? Can resume patient's home aspirin 81 mg ? Resume rest of the patient's goal-directed medical therapy for heart failure as tolerated ? Keep K> 4,Mg>2 Rest of medical problems as per primary team Case discussed with my attending Dr. Triston Kelly MD PGY-2 Disclaimer: Despite multiple revisions, due to the dictation software being used, the document bellow may not be free of grammatical errors including phonetic/typographic errors. However, this does not deter from our commitment to providing health care in the patient's best interest in mind.
[2024-12-22] MEDS: ATORVASTATIN CALCIUM 20 MG TABLET 80 MG PO (20:22)
[2024-12-22] MEDS: HEPARIN SOD INJ 5000 UNIT/ML VIAL SC (21:08)
[2024-12-22 23:16] LABS: Troponin I 0.490 ng/mL (0.0-0.045)
[2024-12-23] VITALS (13 sets, daily range): BP systolic 108–135; BP diastolic 67–97; PULSE 81–101; RESP 12–31; TEMP 36–37.3; O2SAT 81–194; BMI 31.9
--- NOTE | 2024-12-23 00:05 | PC.NURSE ---
MD Almanzar made aware that complaining of SOB, O2 sats on 99%, pt is on 5L per NC, bed elevated all the way to 90%, no complains of chest pain at this time. Pt troponin went up to 0.490.No new order made at this time.
--- NOTE | 2024-12-23 00:38 | PC.NURSE ---
Pt still complaining of difficulty breathing, 02 sats on 99%, MD hCild made aware, new order made to give breathing treatment.
[2024-12-23] MEDS: LEVALBUTEROL RT 0.63 MG/3 ML NEBU INH (00:49)
[2024-12-23] MEDS: IPRATROPIUM RT 0.5 MG/ 2.5 ML NEBU INH (00:49)
--- NOTE | 2024-12-23 01:35 | XR_ITS ---
Examination: AP chest single view Technique: AP portable semiupright chest single view Date and time: December 23, 2024, 0236 hrs., Comparison 12/22/2024 Indications: Shortness of breath today. Findings: Mild CHF. Moderate enlargement cardiac contour. Prominent vascular congestion with perihilar basilar edema. Transvenous dual-chamber bipolar cardiac leads satisfactory position. Impression: Mild CHF
--- NOTE | 2024-12-23 01:43 | PD.RESEVENT ---
Documentation for date of: 12/23/24 Event Note Event Note: At 1:31 RR was called patient found obtunded and oxygen desatted to 67%. Earlier he has complained of SOB and has been on DUONEB. On arrival he was difficult to arouse but shortly became responsive. Continued to complain of feeling sob. There were no signs of focal neurological deficts. He was A&Ox3. Troponin has been slightly trending but he had no chest pain. Remainder vitals, glucose and temperature were within acceptable limits. Likely he had slight apnic episode during sleep. CXR, CBC, CMP, LA, ABG were ordered. Will continue with CPAP HS.
[2024-12-23] MEDS: FUROSEMIDE INJ 10 MG/ML 4ML VIAL 40 MG IVP ×2 (01:52→08:40)
[2024-12-23 02:04] LABS: Allen Test Performed/OK; Base Excess 0 (-3-3); HCO3 25 mEq/L (20-26); Inspired Oxygen, FIO2 10 %; O2 Saturation 97 % (91-98); PCO2 40 mmHg (32.0-48.0); PO2 104 mmHg (83-108); Puncture Site Right Radial; pH, Arterial 7.40 (7.35-7.45)
[2024-12-23 02:09] LABS: Lactate (Lactic Acid) 2.3 mMol/L (0.4-2.0)
[2024-12-23 02:22] LABS: Basophils # (Auto) 0.1 Thou/mm3 (0.0-0.2); Basophils % (Auto) 1 % (0-2.5); Eosinophils # (Auto) 0.1 Thou/mm3 (0.0-0.5); Eosinophils % (Auto) 1 % (0-10); Hematocrit 42.1 % (41.0-53.0); Hemoglobin 13.3 g/dL (13.5-16.0); Immature Granulocytes Auto 0.02 Thou/mm3 (0.00-0.00); Lymphocytes # (Auto) 1.1 Thou/mm3 (1.0-4.8); Lymphocytes % (Auto) 17 % (10-50); Mean Corpuscular HGB Conc 31.6 g/dl (31.0-37.0); Mean Corpuscular Hemoglobin 27.9 pg (25.0-35.0); Mean Corpuscular Volume 88 fL (80-100); Monocytes # (Auto) 0.6 Thou/mm3 (0.0-0.8); Monocytes % (Auto) 8 % (0-12); Neutrophils # (Auto) 4.9 Thou/mm3 (1.8-7.7); Neutrophils % (Auto) 72 % (37-80); Nucleated Red Blood Cell # 0.00 Thou/mm3 (0.00-0.00); Nucleated Red Blood Cell % 0 /100 WBC (0); Platelet Count 258 Thou/mm3 (140-440); RDW Standard Deviation 48.8 fL (35.1-43.9); Red Blood Count 4.76 Miln/mm3 (4.50-5.90); White Blood Count 6.7 Thou/mm3 (3.8-10.6)
[2024-12-23 02:41] LABS: D-Dimer 423 ng/mL (<600)
[2024-12-23 02:57] LABS: Alanine Aminotransferase 30 U/L (10-49); Albumin, Serum 3.6 gm/dL (3.5-5.0); Albumin/Globulin Ratio 1.8 (1.2-2.2); Alkaline Phosphatase 123 U/L (46-116); Anion Gap 10 (7-16); Aspartate Amino Transferase 43 U/L (0-34); BUN/Creatinine Ratio 10 Ratio (12-20); Bilirubin,Total 0.5 mg/dL (0.3-1.2); Blood Urea Nitrogen 14 mg/dL (9-23); Calcium 8.9 mg/dL (8.3-10.6); Calcium (Corrected) 9.2 mg/dL (8.5-10.1); Carbon Dioxide 26.8 mMol/L (20.0-31.0); Chloride 104 mMol/L (98-107); Creatinine (Component) 1.4 mg/dL (0.6-1.3); Estimated Creatinine Clearance 73.5 mL/min (>60); Globulin 2.0 gm/dL (2.3-3.5); Glucose 144 mg/dL (74-106); Osmolality,Calculated 284 (275-295); Potassium 3.6 mMol/L (3.4-5.1); Sodium 141 mMol/L (136-145); Total Protein 5.6 gm/dL (5.7-8.2); eGFR > 60 See Note
[2024-12-23 05:05] LABS: Reflex Lactate? Y
[2024-12-23 06:08] LABS: Lactic Acid, 3 HR 1.5 mMol/L (0.4-2.0)
[2024-12-23 06:10] LABS: Basophils # (Auto) 0.1 Thou/mm3 (0.0-0.2); Basophils % (Auto) 2 % (0-2.5); Eosinophils # (Auto) 0.1 Thou/mm3 (0.0-0.5); Eosinophils % (Auto) 1 % (0-10); Hematocrit 44.9 % (41.0-53.0); Hemoglobin 14.3 g/dL (13.5-16.0); Immature Granulocytes Auto 0.01 Thou/mm3 (0.00-0.00); Lymphocytes # (Auto) 1.3 Thou/mm3 (1.0-4.8); Lymphocytes % (Auto) 18 % (10-50); Mean Corpuscular HGB Conc 31.8 g/dl (31.0-37.0); Mean Corpuscular Hemoglobin 28.4 pg (25.0-35.0); Mean Corpuscular Volume 89 fL (80-100); Monocytes # (Auto) 0.8 Thou/mm3 (0.0-0.8); Monocytes % (Auto) 11 % (0-12); Neutrophils # (Auto) 4.8 Thou/mm3 (1.8-7.7); Neutrophils % (Auto) 68 % (37-80); Nucleated Red Blood Cell # 0.00 Thou/mm3 (0.00-0.00); Nucleated Red Blood Cell % 0 /100 WBC (0); Platelet Count 262 Thou/mm3 (140-440); RDW Standard Deviation 50.4 fL (35.1-43.9); Red Blood Count 5.03 Miln/mm3 (4.50-5.90); White Blood Count 7.1 Thou/mm3 (3.8-10.6)
[2024-12-23 06:41] LABS: Alanine Aminotransferase 30 U/L (10-49); Albumin, Serum 4.1 gm/dL (3.5-5.0); Albumin/Globulin Ratio 1.6 (1.2-2.2); Alkaline Phosphatase 129 U/L (46-116); Anion Gap 12 (7-16); Aspartate Amino Transferase 36 U/L (0-34); BUN/Creatinine Ratio 7 Ratio (12-20); Bilirubin,Total 0.7 mg/dL (0.3-1.2); Blood Urea Nitrogen 10 mg/dL (9-23); Calcium 9.3 mg/dL (8.3-10.6); Calcium (Corrected) 9.3 mg/dL (8.5-10.1); Carbon Dioxide 27.7 mMol/L (20.0-31.0); Cardiac Risk Estimate 3.7 RATIO (4.0-6.7); Chloride 102 mMol/L (98-107); Cholesterol 118 mg/dL (132-200); Creatinine (Component) 1.4 mg/dL (0.6-1.3); Estimated Creatinine Clearance 72.7 mL/min (>60); Globulin 2.5 gm/dL (2.3-3.5); Glucose 102 mg/dL (74-106); HDL Cholesterol 32 mg/dL (40-60); LDL Cholesterol,Calculated 68 mg/dL (0-130); Magnesium 2.0 mg/dL (1.6-2.6); Osmolality,Calculated 282 (275-295); Phosphorous 3.3 mg/dL (2.4-5.1); Potassium 3.6 mMol/L (3.4-5.1); Sodium 142 mMol/L (136-145); Total Protein 6.6 gm/dL (5.7-8.2); Triglycerides 89 mg/dL (30-150); eGFR > 60 See Note
[2024-12-23 06:42] LABS: Glucose Estimated Average 117 mg/dL (80-131); Hemoglobin A1C 5.7 % Hgb (4.8-6.0)
[2024-12-23 08:11] LABS: Thyroid Stimulating Hormone 0.21 uIU/mL (0.55-4.78)
[2024-12-23] MEDS: HEPARIN SOD INJ 5000 UNIT/ML VIAL SC (08:42)
[2024-12-23] MEDS: VALSARTAN 40 MG TABLET 80 MG PO (08:42)
[2024-12-23] MEDS: ASPIRIN EC 81 MG TABEC PO (08:43)
[2024-12-23] MEDS: METOPROLOL SUCCINATE XL 25 MG TABCR 50 MG PO (08:43)
--- NOTE | 2024-12-23 09:35 | PD.RESPRO ---
Documentation for date of: 12/23/24 Exam Vital Signs Temp Pulse Resp BP Pulse Ox O2 Del Method O2 Flow Rate 97.1 F 87 14 128/92 H 100 Nasal Cannula 1 12/23/24 08:00 12/23/24 08:43 12/23/24 08:00 12/23/24 08:43 12/23/24 08:00 12/23/24 08:00 12/23/24 08:00 FiO2 45 12/23/24 06:33 Objective Labs 12/23/24 05:43 12/23/24 05:43 Labs: Laboratory Results - last 24 hr 12/22/24 12/22/24 12/22/24 09:44 11:30 16:38 WBC RBC Hgb Hct MCV MCH MCHC RDW Std Deviation Plt Count Neut % (Auto) Lymph % (Auto) [place] % (Auto) Eos % (Auto) Baso % (Auto) Neut # (Auto) Lymph # (Auto) [place] # (Auto) Eos # (Auto) Baso # (Auto) Immature Gran # (Auto) Absolute Nucleated RBC Immature Gran % Nucleated RBC % APTT 33.5 D-Dimer Puncture Site ABG pH ABG pCO2 ABG pO2 ABG HCO3 ABG O2 Saturation ABG Base Excess Oxygen Liter Flow FiO2 Sodium Potassium Chloride Carbon Dioxide Anion Gap BUN Creatinine Estim Creat Clear Calc eGFR BUN/Creatinine Ratio Glucose Estimated Ave Glu mg/dL Hemoglobin A1c Calculated Osmolality Lactic Acid Calcium Corrected Calcium Phosphorus Magnesium Total Bilirubin AST ALT Alkaline Phosphatase Troponin I 0.523 H* 0.476 H* B-Natriuretic Peptide Total Protein Albumin Globulin Albumin/Globulin Ratio Triglycerides Cholesterol LDL Cholesterol, Calc HDL Cholesterol Cholesterol/HDL Ratio TSH Ur Collection Type Clean Catch Urine Color Yellow Urine Clarity Clear Urine pH 6.0 Ur Specific [place] 1.028 Urine Protein 1+ A Urine Glucose (UA) Negative Urine Ketones Negative Urine Blood Negative Urine Nitrite Negative Urine Bilirubin Negative Urine Urobilinogen (Auto) Negative Ur Leukocyte Esterase Negative Urine RBC 2 Urine WBC 1 Ur Squamous Epith Cells < 1 Urine Bacteria None Ur Culture Indicated? Not Indicated Urine Opiates Screen Positive A Urine Fentanyl Screen Negative Ur Barbiturates Screen Negative U Amphetamin/Meth Scrn Positive A U Benzodiazepines Scrn Negative U Cocaine Metab Screen Negative U Marijuana (THC) Screen Negative 12/22/24 12/22/24 12/22/24 18:30 19:04 21:53 WBC RBC Hgb Hct MCV MCH MCHC RDW Std Deviation Plt Count Neut % (Auto) Lymph % (Auto) [place] % (Auto) Eos % (Auto) Baso % (Auto) Neut # (Auto) Lymph # (Auto) [place] # (Auto) Eos # (Auto) Baso # (Auto) Immature Gran # (Auto) Absolute Nucleated RBC Immature Gran % Nucleated RBC % APTT D-Dimer Puncture Site Not Performed. ABG pH 7.36 ABG pCO2 52 H ABG pO2 33 L* ABG HCO3 29 H ABG O2 Saturation 57 L ABG Base Excess 3 Oxygen Liter Flow 5 FiO2 21 Sodium Potassium Chloride Carbon Dioxide Anion Gap BUN Creatinine Estim Creat Clear Calc eGFR BUN/Creatinine Ratio Glucose Estimated Ave Glu mg/dL Hemoglobin A1c Calculated Osmolality Lactic Acid Calcium Corrected Calcium Phosphorus Magnesium Total Bilirubin AST ALT Alkaline Phosphatase Troponin I 0.488 H* 0.490 H* B-Natriuretic Peptide 343 H Total Protein Albumin Globulin Albumin/Globulin Ratio Triglycerides Cholesterol LDL Cholesterol, Calc HDL Cholesterol Cholesterol/HDL Ratio TSH Ur Collection Type Urine Color Urine Clarity Urine pH Ur Specific [place] Urine Protein Urine Glucose (UA) Urine Ketones Urine Blood Urine Nitrite Urine Bilirubin Urine Urobilinogen (Auto) Ur Leukocyte Esterase Urine RBC Urine WBC Ur Squamous Epith Cells Urine Bacteria Ur Culture Indicated? Urine Opiates Screen Urine Fentanyl Screen Ur Barbiturates Screen U Amphetamin/Meth Scrn U Benzodiazepines Scrn U Cocaine Metab Screen U Marijuana (THC) Screen 12/23/24 12/23/24 12/23/24 01:45 01:50 05:43 WBC 6.7 7.1 RBC 4.76 5.03 Hgb 13.3 L 14.3 Hct 42.1 44.9 MCV 88 89 MCH 27.9 28.4 MCHC 31.6 31.8 RDW Std Deviation 48.8 H 50.4 H Plt Count 258 262 Neut % (Auto) 72 68 Lymph % (Auto) 17 18 [place] % (Auto) 8 11 Eos % (Auto) 1 1 Baso % (Auto) 1 2 Neut # (Auto) 4.9 4.8 Lymph # (Auto) 1.1 1.3 [place] # (Auto) 0.6 0.8 Eos # (Auto) 0.1 0.1 Baso # (Auto) 0.1 0.1 Immature Gran # (Auto) 0.02 H 0.01 H Absolute Nucleated RBC 0.00 0.00 Immature Gran % 0 0 Nucleated RBC % 0 0 APTT D-Dimer 423 Puncture Site Right Radial ABG pH 7.40 ABG pCO2 40 D ABG pO2 104 D ABG HCO3 25 ABG O2 Saturation 97 ABG Base Excess 0 Oxygen Liter Flow FiO2 10 Sodium 141 142 Potassium 3.6 D 3.6 Chloride 104 102 Carbon Dioxide 26.8 27.7 Anion Gap 10 12 BUN 14 10 Creatinine 1.4 H 1.4 H Estim Creat Clear Calc 73.5 72.7 eGFR > 60 > 60 BUN/Creatinine Ratio 10 L 7 L Glucose [address] H D [address] Glu mg/dL 117 Hemoglobin A1c 5.7 Calculated Osmolality 284 282 Lactic Acid 2.3 H 1.5 Calcium 8.9 9.3 Corrected Calcium 9.2 9.3 Phosphorus 3.3 Magnesium 2.0 Total Bilirubin 0.5 0.7 AST 43 H 36 H ALT 30 30 Alkaline Phosphatase 123 H 129 H Troponin I B-Natriuretic Peptide Total Protein 5.6 L 6.6 Albumin 3.6 4.1 D Globulin 2.0 L 2.5 Albumin/Globulin Ratio 1.8 1.6 Triglycerides 89 Cholesterol 118 L LDL Cholesterol, Calc 68 HDL Cholesterol 32 L Cholesterol/HDL Ratio 3.7 L TSH Cancelled 0.21 L Ur Collection Type Urine Color Urine Clarity Urine pH Ur Specific [place] Urine Protein Urine Glucose (UA) Urine Ketones Urine Blood Urine Nitrite Urine Bilirubin Urine Urobilinogen (Auto) Ur Leukocyte Esterase Urine RBC Urine WBC Ur Squamous Epith Cells Urine Bacteria Ur Culture Indicated? Urine Opiates Screen Urine Fentanyl Screen Ur Barbiturates Screen U Amphetamin/Meth Scrn U Benzodiazepines Scrn U Cocaine Metab Screen U Marijuana (THC) Screen 12/23/24 05:43 WBC RBC Hgb Hct MCV MCH MCHC RDW Std Deviation Plt Count Neut % (Auto) Lymph % (Auto) [place] % (Auto) Eos % (Auto) Baso % (Auto) Neut # (Auto) Lymph # (Auto) [place] # (Auto) Eos # (Auto) Baso # (Auto) Immature Gran # (Auto) Absolute Nucleated RBC Immature Gran % Nucleated RBC % APTT D-Dimer Puncture Site ABG pH ABG pCO2 ABG pO2 ABG HCO3 ABG O2 Saturation ABG Base Excess Oxygen Liter Flow FiO2 Sodium Potassium Chloride Carbon Dioxide Anion Gap BUN Creatinine Estim Creat Clear Calc eGFR BUN/Creatinine Ratio Glucose Estimated Ave Glu mg/dL Hemoglobin A1c Calculated Osmolality Lactic Acid Calcium Corrected Calcium Phosphorus Magnesium Total Bilirubin AST ALT Alkaline Phosphatase Troponin I B-Natriuretic Peptide Total Protein Albumin Globulin Albumin/Globulin Ratio Triglycerides Cholesterol LDL Cholesterol, Calc HDL Cholesterol Cholesterol/HDL Ratio TSH Cancelled Ur Collection Type Urine Color Urine Clarity Urine pH Ur Specific [place] Urine Protein Urine Glucose (UA) Urine Ketones Urine Blood Urine Nitrite Urine Bilirubin Urine Urobilinogen (Auto) Ur Leukocyte Esterase Urine RBC Urine WBC Ur Squamous Epith Cells Urine Bacteria Ur Culture Indicated? Urine Opiates Screen Urine Fentanyl Screen Ur Barbiturates Screen U Amphetamin/Meth Scrn U Benzodiazepines Scrn U Cocaine Metab Screen U Marijuana (THC) Screen ABG Interpretation ABG results: 12/22/24 12/23/24 18:30 01:45 ABG pH 7.36 7.40 ABG pCO2 52 H 40 D ABG pO2 33 L* 104 D ABG HCO3 29 H 25 ABG O2 Saturation 57 L 97 ABG Base Excess 3 0 Quality Measures Quality Measures VTE prophylaxis Assessment & Plan Assessment Current Active Medications: Generic Name Dose Route Start Last Admin Trade Name Freq PRN Reason Stop Dose Admin Acetaminophen 650 mg 12/22/24 10:02 Acetaminophen 325 Mg Tablet PO 01/21/25 10:01 Q6H PRN PAIN SCALE 1-3 (mild Aspirin 81 mg 12/23/24 09:00 12/23/24 08:43 Aspirin Ec 81 Mg Tabec PO 01/22/25 08:59 81 mg QDAY DEBRA Administration Dextrose 25 ml 12/22/24 13:58 Dextrose 50%-Water Inj 50 Ml Syringe IV 01/21/25 13:57 Q15MIN PRN BG 50-70 responsive npo pt Dextrose 50 ml 12/22/24 13:58 Dextrose 50%-Water Inj 50 Ml Syringe IV 01/21/25 13:57 Q15MIN PRN BG <50 OR BG <70 & pt unresponsive Furosemide 40 mg 12/23/24 09:00 12/23/24 08:40 Furosemide Inj 10 Mg/Ml 4ml Vial IVP 01/22/25 08:59 40 mg QDAY DEBRA Administration Glucagon 1 mg 12/22/24 13:58 Glucagon Inj 1 Mg Vial IM Q15MIN PRN BG <70, and no IV access Heparin Sodium (Porcine) 5,000 unit 12/22/24 22:00 12/23/24 08:42 Heparin Sod Inj 5000 Unit/Ml Vial SC 01/05/25 21:59 5,000 unit Q12HR DEBRA Administration Insulin Human Lispro 0 unit 12/22/24 17:00 12/23/24 08:24 Insulin Lispro (Admelog) 1 Unit/0.01 Ml Unit SC 01/21/25 16:59 Not Given AC DEBRA Protocol Metoprolol Succinate 50 mg 12/23/24 09:00 12/23/24 08:43 Metoprolol Succinate Xl 25 Mg Tabcr PO 01/22/25 08:59 50 mg QDAY DEBRA Administration Potassium Chloride 20 meq 12/23/24 10:00 Potassium Chloride 20 Meq Tabcr PO 12/23/24 10:01 X1 ONE Sennosides 1 tab 12/22/24 10:02 Senna Tablet PO 01/21/25 10:01 BID PRN CONSTIPATION Protocol Valsartan 80 mg 12/22/24 10:45 12/23/24 08:42 Valsartan 40 Mg Tablet PO 01/21/25 10:29 80 mg QDAY DEBRA Administration
[2024-12-23 10:20] LABS: Free T4 (Free Thyroxine) 1.22 ng/dL (0.89-1.76)
--- NOTE | 2024-12-23 10:29 | ESPR_ITS ---
<Statement entered by Amy Goldstein MD - 12/24/24 16:38> I personally evaluated the patient along with resident physician PGY 2 Dr. Kelly who examined the patient as well and patient appears to be clinically well no further chest pain or shortness with troponin levels tend to go down clinically not in heart failure he was started on GDMT patient can be discharged if he remains stable no further workup is necessary. Documentation for date of: 12/23/24 Subjective Subjective Interval history: Patient seen today at the bedside found awake, alert, orientedx3. No overnight events reported. Vitals and labs reviewed. No active complaints at this time is resting comfortably in bed. Denies any chest pain, shortness of breath, PND, orthopnea. Currently on aspirin, metoprolol, Lasix, valsartan tolerating well. Patient should continue to be compliant with his goal-directed medical therapy and recommend cessation of methamphetamine and cigarette use. Exam Vital Signs Temp Pulse Resp BP Pulse Ox O2 Del Method O2 Flow Rate 97.1 F 87 14 128/92 H 100 Nasal Cannula 1 12/23/24 08:00 12/23/24 08:43 12/23/24 08:00 12/23/24 08:43 12/23/24 08:00 12/23/24 08:00 12/23/24 08:00 FiO2 45 12/23/24 06:33 Narrative Exam Physical Exam GENERAL: NAD, AAOx3 HEENT: Moist mucosa. Eyes open, symmetrical, & clear CARDIO: Heart RRR, no obvious murmurs PULM: No noted coughing/dyspnea CTA B/L, no R/W/R GI: Abdomen soft, nondistended, no pain on palpation. BSx4 SKIN/MSK/EXT: No wounds/rashes/edema/amputations, no pain on palpation. Pedal pulses present B/L NEURO: AAOx3, no focal neuro deficits, able to move all 4 extremities Objective Labs 12/23/24 05:43 12/23/24 05:43 Labs: Laboratory Results - last 24 hr 12/22/24 12/22/24 12/22/24 09:44 11:30 16:38 WBC RBC Hgb Hct MCV MCH MCHC RDW Std Deviation Plt Count Neut % (Auto) Lymph % (Auto) [place] % (Auto) Eos % (Auto) Baso % (Auto) Neut # (Auto) Lymph # (Auto) [place] # (Auto) Eos # (Auto) Baso # (Auto) Immature Gran # (Auto) Absolute Nucleated RBC Immature Gran % Nucleated RBC % APTT 33.5 D-Dimer Puncture Site ABG pH ABG pCO2 ABG pO2 ABG HCO3 ABG O2 Saturation ABG Base Excess Oxygen Liter Flow FiO2 Sodium Potassium Chloride Carbon Dioxide Anion Gap BUN Creatinine Estim Creat Clear Calc eGFR BUN/Creatinine Ratio Glucose Estimated Ave Glu mg/dL Hemoglobin A1c Calculated Osmolality Lactic Acid Calcium Corrected Calcium Phosphorus Magnesium Total Bilirubin AST ALT Alkaline Phosphatase Troponin I 0.523 H* 0.476 H* B-Natriuretic Peptide Total Protein Albumin Globulin Albumin/Globulin Ratio Triglycerides Cholesterol LDL Cholesterol, Calc HDL Cholesterol Cholesterol/HDL Ratio TSH Free T4 Ur Collection Type Clean Catch Urine Color Yellow Urine Clarity Clear Urine pH 6.0 Ur Specific [place] 1.028 Urine Protein 1+ A Urine Glucose (UA) Negative Urine Ketones Negative Urine Blood Negative Urine Nitrite Negative Urine Bilirubin Negative Urine Urobilinogen (Auto) Negative Ur Leukocyte Esterase Negative Urine RBC 2 Urine WBC 1 Ur Squamous Epith Cells < 1 Urine Bacteria None Ur Culture Indicated? Not Indicated Urine Opiates Screen Positive A Urine Fentanyl Screen Negative Ur Barbiturates Screen Negative U Amphetamin/Meth Scrn Positive A U Benzodiazepines Scrn Negative U Cocaine Metab Screen Negative U Marijuana (THC) Screen Negative 12/22/24 12/22/24 12/22/24 18:30 19:04 21:53 WBC RBC Hgb Hct MCV MCH MCHC RDW Std Deviation Plt Count Neut % (Auto) Lymph % (Auto) [place] % (Auto) Eos % (Auto) Baso % (Auto) Neut # (Auto) Lymph # (Auto) [place] # (Auto) Eos # (Auto) Baso # (Auto) Immature Gran # (Auto) Absolute Nucleated RBC Immature Gran % Nucleated RBC % APTT D-Dimer Puncture Site Not Performed. ABG pH 7.36 ABG pCO2 52 H ABG pO2 33 L* ABG HCO3 29 H ABG O2 Saturation 57 L ABG Base Excess 3 Oxygen Liter Flow 5 FiO2 21 Sodium Potassium Chloride Carbon Dioxide Anion Gap BUN Creatinine Estim Creat Clear Calc eGFR BUN/Creatinine Ratio Glucose Estimated Ave Glu mg/dL Hemoglobin A1c Calculated Osmolality Lactic Acid Calcium Corrected Calcium Phosphorus Magnesium Total Bilirubin AST ALT Alkaline Phosphatase Troponin I 0.488 H* 0.490 H* B-Natriuretic Peptide 343 H Total Protein Albumin Globulin Albumin/Globulin Ratio Triglycerides Cholesterol LDL Cholesterol, Calc HDL Cholesterol Cholesterol/HDL Ratio TSH Free T4 Ur Collection Type Urine Color Urine Clarity Urine pH Ur Specific [place] Urine Protein Urine Glucose (UA) Urine Ketones Urine Blood Urine Nitrite Urine Bilirubin Urine Urobilinogen (Auto) Ur Leukocyte Esterase Urine RBC Urine WBC Ur Squamous Epith Cells Urine Bacteria Ur Culture Indicated? Urine Opiates Screen Urine Fentanyl Screen Ur Barbiturates Screen U Amphetamin/Meth Scrn U Benzodiazepines Scrn U Cocaine Metab Screen U Marijuana (THC) Screen 12/23/24 12/23/24 12/23/24 01:45 01:50 05:43 WBC 6.7 7.1 RBC 4.76 5.03 Hgb 13.3 L 14.3 Hct 42.1 44.9 MCV 88 89 MCH 27.9 28.4 MCHC 31.6 31.8 RDW Std Deviation 48.8 H 50.4 H Plt Count 258 262 Neut % (Auto) 72 68 Lymph % (Auto) 17 18 [place] % (Auto) 8 11 Eos % (Auto) 1 1 Baso % (Auto) 1 2 Neut # (Auto) 4.9 4.8 Lymph # (Auto) 1.1 1.3 [place] # (Auto) 0.6 0.8 Eos # (Auto) 0.1 0.1 Baso # (Auto) 0.1 0.1 Immature Gran # (Auto) 0.02 H 0.01 H Absolute Nucleated RBC 0.00 0.00 Immature Gran % 0 0 Nucleated RBC % 0 0 APTT D-Dimer 423 Puncture Site Right Radial ABG pH 7.40 ABG pCO2 40 D ABG pO2 104 D ABG HCO3 25 ABG O2 Saturation 97 ABG Base Excess 0 Oxygen Liter Flow FiO2 10 Sodium 141 142 Potassium 3.6 D 3.6 Chloride 104 102 Carbon Dioxide 26.8 27.7 Anion Gap 10 12 BUN 14 10 Creatinine 1.4 H 1.4 H Estim Creat Clear Calc 73.5 72.7 eGFR > 60 > 60 BUN/Creatinine Ratio 10 L 7 L Glucose [address] H D [address] Glu mg/dL 117 Hemoglobin A1c 5.7 Calculated Osmolality 284 282 Lactic Acid 2.3 H 1.5 Calcium 8.9 9.3 Corrected Calcium 9.2 9.3 Phosphorus 3.3 Magnesium 2.0 Total Bilirubin 0.5 0.7 AST 43 H 36 H ALT 30 30 Alkaline Phosphatase 123 H 129 H Troponin I B-Natriuretic Peptide Total Protein 5.6 L 6.6 Albumin 3.6 4.1 D Globulin 2.0 L 2.5 Albumin/Globulin Ratio 1.8 1.6 Triglycerides 89 Cholesterol 118 L LDL Cholesterol, Calc 68 HDL Cholesterol 32 L Cholesterol/HDL Ratio 3.7 L TSH Cancelled 0.21 L Free T4 Cancelled Ur Collection Type Urine Color Urine Clarity Urine pH Ur Specific [place] Urine Protein Urine Glucose (UA) Urine Ketones Urine Blood Urine Nitrite Urine Bilirubin Urine Urobilinogen (Auto) Ur Leukocyte Esterase Urine RBC Urine WBC Ur Squamous Epith Cells Urine Bacteria Ur Culture Indicated? Urine Opiates Screen Urine Fentanyl Screen Ur Barbiturates Screen U Amphetamin/Meth Scrn U Benzodiazepines Scrn U Cocaine Metab Screen U Marijuana (THC) Screen 12/23/24 05:43 WBC RBC Hgb Hct MCV MCH MCHC RDW Std Deviation Plt Count Neut % (Auto) Lymph % (Auto) [place] % (Auto) Eos % (Auto) Baso % (Auto) Neut # (Auto) Lymph # (Auto) [place] # (Auto) Eos # (Auto) Baso # (Auto) Immature Gran # (Auto) Absolute Nucleated RBC Immature Gran % Nucleated RBC % APTT D-Dimer Puncture Site ABG pH ABG pCO2 ABG pO2 ABG HCO3 ABG O2 Saturation ABG Base Excess Oxygen Liter Flow FiO2 Sodium Potassium Chloride Carbon Dioxide Anion Gap BUN Creatinine Estim Creat Clear Calc eGFR BUN/Creatinine Ratio Glucose Estimated Ave Glu mg/dL Hemoglobin A1c Calculated Osmolality Lactic Acid Calcium Corrected Calcium Phosphorus Magnesium Total Bilirubin AST ALT Alkaline Phosphatase Troponin I B-Natriuretic Peptide Total Protein Albumin Globulin Albumin/Globulin Ratio Triglycerides Cholesterol LDL Cholesterol, Calc HDL Cholesterol Cholesterol/HDL Ratio TSH Cancelled Free T4 1.22 Ur Collection Type Urine Color Urine Clarity Urine pH Ur Specific [place] Urine Protein Urine Glucose (UA) Urine Ketones Urine Blood Urine Nitrite Urine Bilirubin Urine Urobilinogen (Auto) Ur Leukocyte Esterase Urine RBC Urine WBC Ur Squamous Epith Cells Urine Bacteria Ur Culture Indicated? Urine Opiates Screen Urine Fentanyl Screen Ur Barbiturates Screen U Amphetamin/Meth Scrn U Benzodiazepines Scrn U Cocaine Metab Screen U Marijuana (THC) Screen ABG Interpretation ABG results: 12/22/24 12/23/24 18:30 01:45 ABG pH 7.36 7.40 ABG pCO2 52 H 40 D ABG pO2 33 L* 104 D ABG HCO3 29 H 25 ABG O2 Saturation 57 L 97 ABG Base Excess 3 0 Quality Measures Quality Measures VTE prophylaxis Assessment & Plan Assessment Current Active Medications: Generic Name Dose Route Start Last Admin Trade Name Freq PRN Reason Stop Dose Admin Acetaminophen 650 mg 12/22/24 10:02 Acetaminophen 325 Mg Tablet PO 01/21/25 10:01 Q6H PRN PAIN SCALE 1-3 (mild Aspirin 81 mg 12/23/24 09:00 12/23/24 08:43 Aspirin Ec 81 Mg Tabec PO 01/22/25 08:59 81 mg QDAY DEBRA Administration Dextrose 25 ml 12/22/24 13:58 Dextrose 50%-Water Inj 50 Ml Syringe IV 01/21/25 13:57 Q15MIN PRN BG 50-70 responsive npo pt Dextrose 50 ml 12/22/24 13:58 Dextrose 50%-Water Inj 50 Ml Syringe IV 01/21/25 13:57 Q15MIN PRN BG <50 OR BG <70 & pt unresponsive Furosemide 40 mg 12/23/24 09:00 12/23/24 08:40 Furosemide Inj 10 Mg/Ml 4ml Vial IVP 01/22/25 08:59 40 mg QDAY DEBRA Administration Glucagon 1 mg 12/22/24 13:58 Glucagon Inj 1 Mg Vial IM Q15MIN PRN BG <70, and no IV access Heparin Sodium (Porcine) 5,000 unit 12/22/24 22:00 12/23/24 08:42 Heparin Sod Inj 5000 Unit/Ml Vial SC 01/05/25 21:59 5,000 unit Q12HR DEBRA Administration Insulin Human Lispro 0 unit 12/22/24 17:00 12/23/24 08:24 Insulin Lispro (Admelog) 1 Unit/0.01 Ml Unit SC 01/21/25 16:59 Not Given AC DEBRA Protocol Metoprolol Succinate 50 mg 12/23/24 09:00 12/23/24 08:43 Metoprolol Succinate Xl 25 Mg Tabcr PO 01/22/25 08:59 50 mg QDAY DEBRA Administration Sennosides 1 tab 12/22/24 10:02 Senna Tablet PO 01/21/25 10:01 BID PRN CONSTIPATION Protocol Valsartan 80 mg 12/22/24 10:45 12/23/24 08:42 Valsartan 40 Mg Tablet PO 01/21/25 10:29 80 mg QDAY DEBRA Administration Plan 53-year-old male active smoker and meth user with past medical history of hypertension, HFrEF [25%] status post ICD who presented to the ED due to chest pain. Cardiology consulted for evaluation of chest pain with elevated troponins #Toxic Cardiomyopathy #Methamphetamine use #Tobbaco use #HFrEF 25% s/p ICD placement #Hypertension Patient is a regular methamphetamine abuser in the morning he stated he last used meth around 2 weeks ago, later in the afternoon he stated about a week ago however UTOX here was positive for methamphetamine, patient's history seems dishonest as answers are inconsistent. Furthermore in evaluating patient's previous echocardiogram from [facility] shows EF of around 20 to 25% which was done of June 2024 Patient also had angiogram with normal coronary arteries in 2023. Patient also noncompliant with his medications he has not taken any of his GDMT for over a year. Patient currently is not in acute CHF exacerbation. EKG showed no acute ST changes Troponins elevated at 0.5 already downtrending to 0.4 ? Discontinue heparin drip ? No need for cardiac cath at this present point in time. ? Can resume patient's home aspirin 81 mg ? Resume rest of the patient's goal-directed medical therapy for heart failure as tolerated ? Keep K> 4,Mg>2 Rest of medical problems as per primary team Case discussed with my attending Dr. Triston Kelly MD PGY-2 Disclaimer: Despite multiple revisions, due to the dictation software being used, the document bellow may not be free of grammatical errors including phonetic/typographic errors. However, this does not deter from our commitment to providing health care in the patient's best interest in mind.
--- NOTE | 2024-12-23 11:22 | ESDS_ITS ---
<Statement entered by Lyndon Pino MD - 12/23/24 13:42> 53-year-old male past medical history of HFrEF EF 25%, AICD placement, meth use disorder, medical noncompliance presented to [facility] on 12/22 with left-sided chest pain. Patient was admitted for possible ACS workup as troponin was elevated. Cardiology was consulted and upon reassessment did not think left heart catheterization was necessary. Heparin drip was discontinued and the patient was monitored for reinstatement of guideline based medical therapy for HFrEF. Patient had 2 rapid responses called the first 1 for chest pain which was largely found to be pleuritic chest pain as EKG and troponins were unremarkable. Patient also had a rapid response called for decreased mental status but it was noted that the patient was desaturating likely secondary to sleep apnea, as a result CPAP was initiated and the patient had marked improvement in mentation. Patient clinically improved and will be discharged with guideline based medical therapy and recommendations follow-up with PCP and cardiology. I have personally seen and examined the patient. I agree with the resident's discharge summary as documented below. Lyndon Pino DO PGY-2 Internal Medicine - GME Planned Discharge Date 12/23/24 DS: Providers Provider Date of admission: 12/22/24 14:17 Primary care physician: Physician No Primary/Family Admitting Provider: Candy Romo DO Attending Provider on Admission: Juan Diego Carrington MD Consults: 12/22/24 09:41 Consult to Cardiology Stat Comment: Consulting Provider: Amy Goldstein 12/22/24 15:06 Health [facility] Referral - Knowledge Deficit Routine Comment: Positive screening for knowledge deficit needs. Attending Provider on DC: Juan Diego Carrington MD Discharging Provider: RESIDENT Kb Anticipated date of discharge: 12/23/24 DS: Diagnosis Problem List Completed Was Problem List Reviewed/Reconciled?: Yes Hospital Course Hospital Course Hospital course: Reason for hospitalization: ACS workup Summary: This patient is a 53-year-old male with history of HFrEF EF 25% (echo about 4 months ago), AICD placement, meth use disorder, and medical noncompliance who presented to [facility] ED on 12/22 for midsternal/left-sided chest pain and shortness of breath that started about 3 days prior to coming to [facility] ED. Patient was admitted for ACS workup. The patient is noted to frequent [facility] in [place] for his medical issues, but does not follow a PCP or cover remover. The patient has been previously prescribed GDMT, but the patient has not taken any medications for over a year. In the ED, the patient described the chest pain as a sharp stabbing pain, nonradiating, and gets worse on palpation of sternum. Vitals in ED were significant for blood pressure of 173/77 and labs were significant for BNP of 360 and troponin of 0.523. Patient was given morphine 2 mg, which helped with the pain. Urine toxicology was positive for methamphetamine and opiates. EKG did not have any acute changes in any ST segments and chest x-ray showed early CHF. Cardiology was consulted, and they r ecommended holding off on heparin drip as patient presentation did not suggest ACS. Patient did have 2 rapid responses called while hospitalized for chest pain and shortness of breath. It was noted that both of these rapid responses, the chest pain seem pleuritic, reproducible and worsened upon palpation of the patient sternum. For the first rapid response, the patient's shortness of breath and low O2 saturation improved significantly when using a different pulse oximeter and giving the patient morphine so that he was able to take deeper breaths. On the second rapid response, the patient appeared to have an apneic episode during sleep, so CPAP was ordered for the evening. In both of these episodes, troponin was slightly elevated, but noted to be decreased compared to his troponin initially in the ED. Given the symptoms, cardiology believes that this is most likely toxic cardiomyopathy secondary to the patient's frequent methamphetamine use and nonadherence to GDMT. Cardiology does not plan for any intervention at this time and believes that he is cleared to discharge on 12/23. Patient's vitals are stable and labs are stable on 12/23, so patient is safe to return home. Discharge Recommendations: - Follow up with PCP within 1 week of discharge - Continue rest of medications as previously prescribed - Return to the ED or call EMS if symptoms return and/or worsen - You have been prescribed a series of medications that you must take daily: Aspirin 81 mg, Jardiance 10 mg, Lasix 40 mg, metoprolol succinate 50 mg, spironolactone 25 mg, valsartan 80 mg. - Please follow-up with a cover remover for further management of CHF If you don't have a PCP, you can make an appointment at the [facility]: [address] [place] [address] Hospital Diagnoses: #NSTEMI type II #HFrEF EF 25%, status post AICD #Toxic cardiomyopathy #Enk-[id number] type 2 diabetes #Primary hypertension #Hypokalemia #Methamphetamine abuse #Tobacco use Patient plan of care was discussed with the senior resident Dr. Pino (PGY- 2) and attending physician Dr. Zeb Snow, PGY-1 Status at Discharge Functional status at discharge: independent ambulation Overall status at discharge: patient is back to baseline Time Spent with Patient Time attestation: Total time spent providing and/or coordinating discharge services: Time spent: Greater than 30 minutes Exam Vital Signs Temp Pulse Resp BP Pulse Ox O2 Del Method O2 Flow Rate 97.1 F 87 14 128/92 H 100 Nasal Cannula 1 12/23/24 08:00 12/23/24 08:43 12/23/24 08:00 12/23/24 08:43 12/23/24 08:00 12/23/24 08:00 12/23/24 08:00 FiO2 45 12/23/24 06:33 Narrative Exam Physical Exam: General: Alert, no acute distress. Skin: Warm, dry, intact. Head: Normocephalic, atraumatic. Eye: Normal conjunctiva, PERRL. Cardiovascular: Regular rate and rhythm, no murmur, +S1/S2. Tender to palpation of sternum. Respiratory: Lungs are clear to auscultation, respirations unlabored, no crackles, no wheezing. Gastrointestinal: Soft, nontender, non-distended. No guarding or rebound tenderness. Extremities: No edema, no cyanosis, no clubbing. 2+ radial pulse bilaterally, 2+ pedal pulse bilaterally. Neuro: No focal deficits observed. Conversant, moving all extremities. No overt cerebellar signs/incoordination. Psychiatric: Cooperative, appropriate affect. Discharge Plan Plan Patient Disposition: HOME (Self Care) Patient condition on transfer: Stable Care Plan Goals: Please take heart failure medications as directed: Lasix 40mg by mouth once a day in the morning Jardiance 10mg by mouth once a day in the morning metoprolol succinate 50mg by mouth once a day spironolactone 25mg by mouth once a day valsartan 80mg by mouth once a day Take aspirin 81 mg by mouth once a day Follow-up with PCP within 1 week after discharge or follow-up at the [facility] [address] [place] [address] Ask your PCP to refer you to a cover remover Stop using methanphetamine If your symptoms worsen or if you develop new chest pain, shortness of breath, dizziness or bleeding - please come back to the ED immediately. Prescriptions/Referrals Prescriptions/Med Rec: New aspirin 81 mg Tablet,Delayed Release (Dr/Ec) 81 mg PO QDAY 30 Days Qty: 30 0RF valsartan 80 mg Tablet 80 mg PO QDAY 30 Days Qty: 30 3RF furosemide [Lasix] 40 mg tablet 40 mg PO QAM 30 Days Qty: 30 3RF Jardiance 10 mg tablet 10 mg PO QAM 30 Days Qty: 30 3RF metoprolol succinate 50 mg capsule,sprinkle,ER 24hr 50 mg PO QDAY 30 Days Qty: 30 3RF spironolactone 25 mg tablet 25 mg PO QDAY 30 Days Qty: 30 3RF Discontinued Hydrocodone/Acetaminophen * (NORCO 5/325 *) 1 TAB tablet 1 tab PO BID PRN (Reason: PAIN) Qty: 10 0RF Rx Instructions: FOR PAIN Referrals: No Primary/Family,Physician [Primary Care Provider] Patient/Caregiver Discharge Instructions Education Materials: Heart Failure Meds, Heart Failure Signs of Flare-Up, Coping with Heart Failure Print Language: Russian Stand Alone Forms: Lizz Award Info., Patient Portal Info Letter Discharge Order Discharge Orders: Discharge (Routine); Ordered 12/23/24 Ordered By: Lyndon Pino Quality Discharge Quality Measures VTE prophylaxis Attestestation Attestation Face to face evaluation was performed by me. I have personally seen and examined the patient. I discussed the assessment and plan with the entire medicine team. I reviewed available medical records, imaging studies, laboratory results. I agree with the above subjective data, objective findings, assessment and plan except as corrected by me or noted below Non-STEMI type II demand ischemia Acute on chronic CHF systolic exacerbation ICD implantation Polysubstance abuse/methamphetamine abuse Patient received diuresis cardiology was consulted no need for heart catheterization repeat echo. Patient has to stay compliant with medications including goal-directed medical therapy for his cardiomyopathy/CHF. He should stay away from polysubstance abuse. Add Jardiance, spironolactone continue valsartan and metoprolol. As well as furosemide 40 mg daily. Patient to follow-up with PCP and cardiology after discharge More than > 30 minutes spent on the encounter
--- NOTE | 2024-12-23 12:17 | PC.SS ---
SS met with bedside nurse, Nancy who is aware pt is requiring O2 testing for home O2. SS met with pt who states he does not utilize O2 at home. Pt states he does not have PCP. SS provided verbal options for PCP and his choice is [facility]. SS has spoken to Sushma from [facility] and scheduled pt an appointment with Dr. Chris Astorga in [place] for Thursday 11:15am for Dec 28, 2024. SS provided pt with [facility] with appointment information.
--- NOTE | 2024-12-23 14:40 | PC.SS ---
Pt is requesting to d/c to [address] [place] [address] in [place]. Megan DAVIS and bedside nurse, Nancy are aware to order sack lunch for pt to take with him. attempted to setup transportation with [place] [employer] but was unsuccessful. SS spoke to Ronny mcclelland [place] [employer] who explained they only provide transportation in the [place] area not outside of [place]. SS called [employer] and scheduled transport with for 3:30pm. has provided Megan DAVIS with taxi voucher. Bedside nurseJocelynn is aware pt must be down stairs before 3:30 for transportation. Pt is aware.
--- NOTE | 2024-12-23 15:37 | PC.SS ---
SS was informed by [facility] they are unable to take pt to [facility] for his medication and taxi voucher is to fern picker pt from [facility] and take him to the address provided ([address] and no stop in between transport). Pt is aware and states he has a vehicle and will fern picker his medication or his friend will take him. Pt state he will follow up at Welfare office to continue with the Medical application. SS attempted to call pt and his friend, Eunice to inform him pt left is insurance information at bedside but was unsuccessful.
== END 2024-12-23 15:25 | disposition home or self-care (01) | DRG 203 ==
LOC: SERX 08:43 → SERHOLD 11:04 → S2NX 14:22
PROVIDERS: Student in an Organized Health Care Education/Training Program; Admitting Provider Internal Medicine; Emergency Provider Family Medicine; Visit Provider Internal Medicine
DX: R07.9 Chest pain, unspecified (principal); F17.200 Nicotine dependence, unspecified, uncomplicated; I50.22 Chronic systolic (congestive) heart failure; I11.0 Hypertensive heart disease with heart failure; F15.10 Other stimulant abuse, uncomplicated; I42.7 Cardiomyopathy due to drug and external agent; E87.6 Hypokalemia; Z95.810 Presence of automatic (implantable) cardiac defibrillator; E11.9 Type 2 diabetes mellitus without complications; F17.210 Nicotine dependence, cigarettes, uncomplicated; G47.30 Sleep apnea, unspecified; Z79.84 Long term (current) use of oral hypoglycemic drugs; Z79.899 Other long term (current) drug therapy; Z91.148 Patient's other noncompliance with medication regimen for other reason; Z79.82 Long term (current) use of aspirin
CPT/HCPCS: 36415; 36600; 71045; 80053; 80061; 80307; 81001; 82803; 83036; 83605; 83735; 83880; 84100; 84439; 84443; 84484; 85025; 85379; 85610; 85730; 93005; 94640; 94660; 96372; 96374; 96375; 99284; J1644; J1938; J2270; J2405; J3475; A9270

== ENCOUNTER 2025-01-21 19:52 | Emergency (ER) | payer MEDICAID, SELFPAY ==
--- NOTE | 2025-01-21 19:53 | EKG_ITS ---
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: : 1970 Requested By: ED Temporary Provider Order Number: [id number] Reading MD: ED Temporary Provider Measurements Intervals [place] Rate: 82 P: 27 WI: 187 QRS: -29 QRSD: 117 T: 80 QT: 390 QTc: 457 Interpretive Statements SINUS RHYTHM WITH OCCASIONAL VENTRICULAR PREMATURE COMPLEXES BORDERLINE LEFT AXIS DEVIATION [QRS AXIS < -20] LEFT VENTRICULAR HYPERTROPHY AND ST-T CHANGE [VOLTAGE CRITERIA PLUS ST/T ABNORMALITY] Compared to ECG 12/23/2024 01:43:38 Ventricular premature complex(es) now present ST (T wave) deviation now present T-wave abnormality no longer present /store/S0/[id number].pdf
[2025-01-21 20:05] VITALS: BP 162/95; PULSE 83; RESP 22; TEMP 36.6; O2SAT 97; BMI 32.5
--- NOTE | 2025-01-21 20:12 | XR_ITS ---
Examination: PA chest single view Technique: Upright PA chest single view Date and time: January 21, 2025, 2100 hrs., Comparison 12/23/2024 Indications: Chest pain today. Findings: Mild prominence of ventricle Moderate vascular congestion No lobar pneumonia No daniel pulmonary edema Transvenous dual-chamber bipolar cardiac leads satisfactory position Impression: Moderate vascular congestion
--- NOTE | 2025-01-21 20:13 | EDNOTE_ITS ---
ED Chest Pain RME/HPI General Chief Complaint: Chest Pain Stated Complaint: CHEST PAIN,SOB,HEADACHE Time Seen by Provider: 01/21/25 19:56 Arrival date/time: 01/21/25 19:52 RME / HPI RME / HPI narrative: 54-year-old male patient came in for evaluation regarding anterior chest wall pain. Onset of symptoms since early this morning as anterior chest wall pain, described as sharp pain, severity moderate, also complained of headache left-s ided, severity moderate. Associated with shortness of breath. Patient denies any trauma or fall denies any fever denies any cough denies any diaphoresis. Patient is ambulatory took Tylenol 650 mg earlier today with no relief. Patient was just released from [facility] for the same complaints, 4 days ago. Patient is very anxious. Related Data Previous Rx's ?Medication ?Instructions ?Recorded aspirin 81 mg tablet,delayed 81 mg PO QDAY 1 month #30 tabs 12/23/24 release empagliflozin 10 mg tablet 10 mg PO QAM 1 month #30 ta bs 12/23/24 (Jardiance) furosemide 40 mg tablet (Lasix) 40 mg PO QAM 1 month # 30 tabs 12/23/24 metoprolol succinate 50 mg capsule 50 mg PO QDAY 1 thu #30 ea 12/23/24 sprinkle, ext. release 24 hr spironolactone 25 mg tablet 25 mg PO QDAY 1 month #30 tabs 12/23/24 valsartan 80 mg tablet 80 mg PO QDAY 1 month #30 ta bs 12/23/24 acetaminophen 300 mg-codeine 30 mg 1 tab PO BID PRN pa in #14 tabs 01/22/25 tablet lorazepam 0.5 mg tablet (Ativan) 0.5 mg PO BID PRN anx iety #14 tabs 01/22/25 Allergies Allergy/AdvReac Type Severity Reaction Status Date / Time No Known Allergies Allergy Verified 12/22/24 07:25 Review of Systems Review of Systems Narrative Review of Systems: Review of system reviewed and within normal limits except mentioned in HPI ED Exam Narrative Physical exam: VITAL SIGNS: Reviewed. GENERAL APPEARANCE: Alert and interactive, follows commands, no acute distress, HEAD AND FACE: Non-traumatic. ENT: PERRL, pink conjunctivitis, eyelid no trauma, Mucous membrane moist. NECK: Supple, nontender, no nuchal rigidity. CHEST: Anterior chest wall tenderness, no crepitus, no paradoxical movement, no retractions. LUNGS: Clear, well ventilated, symmetric, no rales, no wheezing, no ronchi, no stridor, good breath sounds bilaterally. HEART: Regular rate, regular rhythm, no murmur, no gallops. ABDOMEN: Soft, positive bowel sounds, nondistended, no guarding, nontender, no rebound, no masses, RECTAL: Deferred. GENITAL: Deferred. NEUROLOGICAL: Gross motor function intact sensory function intact, Appropriate for age. MUSCULOSKELETAL: low back nontender, full range of motion. EXTREMITIES: Nontender, full range of motion. SKIN: Color pink, dry, no rash, no lacerations, no abrasions, no contusions. LYMPHATICS: Deferred. Course Quality Measures none Orders Category Date Time Status EKG (ED ONLY) *Do not use* NOW Care 01/21/25 19:[address] head/brain wo con Stat Exams 01/21/25 20:12 Ordered EKG (ED Only) Stat Exams 01/21/25 19:53 Draft XR chest 1V Stat Exams 01/21/25 20:12 Completed CBC Stat Lab 01/21/25 20:31 Completed Comprehensive Metabolic Panel Stat Lab 01/21/25 20:31 Completed Drug Screen,Urine Stat Lab 01/21/25 22:52 Completed Partial Thromboplastin Time Stat Lab 01/21/25 20:31 Completed Prothrombin Time with INR Stat Lab 01/21/25 20:31 Completed Troponin I Stat Lab 01/21/25 20:31 Completed Troponin I Stat Lab 01/21/25 22:40 Completed Urinalysis, C/S if Indicated Stat Lab 01/21/25 22:52 Completed HYDROcodone/APAP 10/325 [[place] 10/325] Med 01/21/25 20:12 Discontinued 1 tab PO X1 ONE Vital Signs Vital signs: Vital Signs Temperature 98 F 01/21/25 20:05 Pulse Rate 83 01/21/25 20:05 Respiratory Rate 22 H 01/21/25 20:05 Blood Pressure 162/95 H 01/21/25 20:05 Pulse Oximetry (%) 97 01/21/25 20:05 Oxygen Delivery Method Room Air 01/21/25 20:05 Chest Pain MDM Narrative MDM Narrative:: 54-year-old male patient came in for evaluation regarding anterior chest wall pain. Onset of symptoms since early this morning as anterior chest wall pain, described as sharp pain, severity moderate, also complained of headache left- sided, severity moderate. Associated with shortness of breath. Patient denies any trauma or fall denies any fever denies any cough denies any diaphoresis. Patient is ambulatory took Tylenol 650 mg earlier today with no relief. Patient was just released from [facility] for the same complaints, 4 days ago. Patient is very anxious. Patient EKG showed normal sinus rhythm with occasional PVC, ventricular rate of 82 bpm, no ST segment elevation or depression. Patient laboratory workup is significant for slight leukocytosis 12 troponin was noted to be 0.0208 after 2 hours, repeat troponin was noted to be 0.0202 Prior to discharge patient having any chest pain. Patient complained of headache however patient refused CT scan of the head. Plan of care discussed with the patient including sending him home on anxiety medications and Tylenol codeine for headache. 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 Although pt's initial presentation was concerning, Pt now reports feeling better after Ativan and has an unremarkable vital signs. Stable for D/C. Hydroxyzine given as needed How is presenting disease/condition affected by chronic disease/condition?: exacerbated by Evaluation data The following diagnostics were reviewed and interpreted by me:: lab results, radiology exam(s) and EKG tracing(s) Lab and/or radiology exams considered but not ordered:: None Interpretation Summary: See results MDM Medications / Prescriptions Medications or Prescriptions considered but not ordered:: None Medication administrations:: Medication Administration History Discontinued Medications Hydrocodone Bitart/Acetaminophen (Hydrocodone/[place] 10/325 Tab) 1 tab PO X1 ONE Stop: 01/21/25 20:13 Last Admin: 01/21/25 21:02 Dose: 1 tab Documented By: CVL [place] Consultations Consultation(s) initiated? (list below): No Diagnosis Chest Pain Differential Diagnosis: stable angina and chest pain Most likely diagnosis given after review of the tests above:: Anxiety, headache, chest pain Admission Indicated Admission indicated?: not indicated Admission Request Was there a request for admission?: No Disposition Plan Disposition Plan: Discharge Discharge Attestation Discharge Attestation: The patient and all family members were given an opportunity to ask questions and understood the discharge instructions. Discharge instructions specifically effects, indications for sooner follow up or return to the emergency department, and the expected course of current diagnosis. Patient condition: Stable Discharge Plan Plan Patient Disposition: HOME (Self Care) Discharge Disposition comment: Stable Prescriptions/Referrals Prescriptions/Med Rec: New lorazepam [Ativan] 0.5 mg tablet 0.5 mg PO BID PRN (Reason: anxiety) Qty: 14 0RF acetaminophen-codeine 300-30 mg tablet 1 tab PO BID PRN (Reason: pain) Qty: 14 0RF No Action aspirin 81 mg Tablet,Delayed Release (Dr/Ec) 81 mg PO QDAY 30 Days Qty: 30 0RF valsartan 80 mg Tablet 80 mg PO QDAY 30 Days Qty: 30 3RF furosemide [Lasix] 40 mg tablet 40 mg PO QAM 30 Days Qty: 30 3RF Jardiance 10 mg tablet 10 mg PO QAM 30 Days Qty: 30 3RF metoprolol succinate 50 mg capsule,sprinkle,ER 24hr 50 mg PO QDAY 30 Days Qty: 30 3RF spironolactone 25 mg tablet 25 mg PO QDAY 30 Days Qty: 30 3RF Referrals: No Primary/Family,Physician [Primary Care Provider] - In 1 week Problem List Clinical Impression: Anxiety, Chest pain, Headache Patient/Caregiver Discharge Instructions Discharge Activity: activity as tolerated Education Materials: ED Anxiety Reaction Additional Instructions: Thank you for the opportunity for serving you today. You are stable for discharged . You are advised to: Follow-up with your PCP in 1 to 2 days Return to ED for worsening of symptoms Print Language: Pakistani Stand Alone Forms: Lizz Award Info., Patient Portal Info Letter BENITO/ADAIR Supervising Physician BENITO/ADAIR Supervising Physician: MD Kelli
[2025-01-21 20:45] LABS: Basophils # (Auto) 0.1 Thou/mm3 (0.0-0.2); Basophils % (Auto) 1 % (0-2.5); Eosinophils # (Auto) 0.3 Thou/mm3 (0.0-0.5); Eosinophils % (Auto) 2 % (0-10); Hematocrit 51.2 % (41.0-53.0); Hemoglobin 16.6 g/dL (13.5-16.0); Immature Granulocytes Auto 0.03 Thou/mm3 (0.00-0.00); Lymphocytes # (Auto) 2.3 Thou/mm3 (1.0-4.8); Lymphocytes % (Auto) 19 % (10-50); Mean Corpuscular HGB Conc 32.4 g/dl (31.0-37.0); Mean Corpuscular Hemoglobin 28.4 pg (25.0-35.0); Mean Corpuscular Volume 88 fL (80-100); Monocytes # (Auto) 0.9 Thou/mm3 (0.0-0.8); Monocytes % (Auto) 7 % (0-12); Neutrophils # (Auto) 8.4 Thou/mm3 (1.8-7.7); Neutrophils % (Auto) 70 % (37-80); Nucleated Red Blood Cell # 0.00 Thou/mm3 (0.00-0.00); Nucleated Red Blood Cell % 0 /100 WBC (0); Platelet Count 327 Thou/mm3 (140-440); RDW Standard Deviation 46.3 fL (35.1-43.9); Red Blood Count 5.85 Miln/mm3 (4.50-5.90); White Blood Count 12.0 Thou/mm3 (3.8-10.6)
[2025-01-21 21:18] LABS: INR 1.0 (0.9-1.3); Partial Thromboplastin Time 28.3 Seconds (22.0-36.0); Prothrombin Time 10.3 Seconds (9.0-12.2)
[2025-01-21 21:22] LABS: Alanine Aminotransferase 60 U/L (10-49); Albumin, Serum 4.7 gm/dL (3.5-5.0); Albumin/Globulin Ratio 1.5 (1.2-2.2); Alkaline Phosphatase 149 U/L (46-116); Anion Gap 9 (7-16); Aspartate Amino Transferase 29 U/L (0-34); BUN/Creatinine Ratio 11 Ratio (12-20); Bilirubin,Total 0.3 mg/dL (0.3-1.2); Blood Urea Nitrogen 14 mg/dL (9-23); Calcium 9.9 mg/dL (8.3-10.6); Calcium (Corrected) 9.9 mg/dL (8.5-10.1); Carbon Dioxide 26.8 mMol/L (20.0-31.0); Chloride 106 mMol/L (98-107); Creatinine (Component) 1.3 mg/dL (0.6-1.3); Estimated Creatinine Clearance 78.1 mL/min (>60); Globulin 3.1 gm/dL (2.3-3.5); Glucose 154 mg/dL (74-106); Osmolality,Calculated 286 (275-295); Potassium 3.8 mMol/L (3.4-5.1); Sodium 142 mMol/L (136-145); Total Protein 7.8 gm/dL (5.7-8.2); eGFR > 60 See Note
[2025-01-21 21:26] LABS: Troponin I 0.208 ng/mL (0.0-0.045)
[2025-01-21 22:12] VITALS: BP 140/79; PULSE 72; RESP 19; TEMP 36.8; O2SAT 95
[2025-01-21 22:57] LABS: Collection Type, Urine Clean Catch
[2025-01-21 23:03] LABS: Bacteria,Urine Rare; Bilirubin,Urine Negative (Negative); Blood,Urine Negative (Negative); Clarity,Urine Clear (Clear/Hazy); Color,Urine Lt-Yellow (Lt Yel-Yel); Culture Indicated,Urine Not Indicated; Glucose, Urine 4+ (Negative); Ketones,Urine Negative (Negative); Leukocyte Esterase,Urine Negative (Negative); Nitrite,Urine Negative (Negative); PH,Urine 5.5 (5.0-7.0); Protein,Urine Trace (Neg - Trace); RBC,Urine < 1 /hpf (0-3); Specific Gravity,Urine 1.030 (1.001-1.035); Squamous Epithelial Cell,Urine < 1 /hpf (0-5); Urobilinogen,Urine Negative mg/dL (0.0-1.0); WBC,Urine < 1 /hpf (0-5)
[2025-01-21 23:08] LABS: Troponin I 0.202 ng/mL (0.0-0.045)
[2025-01-21 23:08] LABS: Amphetamine/Methamp Scrn,U Negative (Negative); Barbiturate Screen,Urine Negative (Negative); Benzodiazepines Screen,Urine Negative (Negative); Benzoylecgonine Screen, Ur Negative (Negative); Fentanyl Screen,Urine Negative (Negative); Opiate Screen,Urine Positive (Negative); THC Screen,Urine Negative (Negative)
[2025-01-22 00:03] VITALS: BP 147/96; PULSE 73; RESP 19; TEMP 36.6; O2SAT 97
== END 2025-01-22 00:39 | disposition home or self-care (01) ==
PROVIDERS: Nurse Practitioner Family; Emergency Provider Emergency Medicine
DX: R07.89 Other chest pain (principal); F41.9 Anxiety disorder, unspecified; R51.9 Headache, unspecified; D72.829 Elevated white blood cell count, unspecified; I10 Essential (primary) hypertension; I42.0 Dilated cardiomyopathy; F15.10 Other stimulant abuse, uncomplicated
CPT/HCPCS: 36415; 71045; 80053; 80307; 81001; 84484; 85025; 85610; 85730; 93005; 99283; A9270